=== PATIENT | female | born 1975 | race Caucasian/White ===

== ENCOUNTER 2022-06-14 12:39 | Inpatient (IN) | payer OTHER, MEDICAID ==
[~2022-06-14] VITALS: Ht 152.4 cm; Wt 58.3 kg
[2022-06-14 12:49] VITALS: BP 93/55; PULSE 97; TEMP 98.5
[2022-06-14 13:29] LABS: APPEARANCE,URINE SL CLOUDY (CLEAR); BILIRUBIN,URINE 1+ (NEGATIVE); BLOOD, URINE NEGATIVE (NEGATIVE); COLOR,URINE YELLOW (YELLOW); LEUKOCYTE ESTERASE ,URINE TRACE (NEGATIVE); NITRITE, URINE NEGATIVE (NEGATIVE); UGLUCOSE NEGATIVE (NEGATIVE)
[2022-06-14 13:30] LABS: BASOPHILS % (AUTO) 0.6 % (0.0-2.0); EOSINOPHILS % (AUTO) 0.2 % (0.0-4.0); HEMOGLOBIN 9.6 g/dL (12.0-16.0); LYMPHOCYTES # (AUTO) 1.2 K/uL (2.5-16.5); LYMPHOCYTES % (AUTO) 17.1 % (20.5-51.1); MEAN CORPUSCULAR HEMOGLOBIN 30 pg (27-31); MEAN CORPUSCULAR HGB CONC 33 g/dL (33-37); MEAN CORPUSCULAR VOLUME 88.7 fL (80-94); MONOCYTES # (AUTO) 0.5 K/uL (0.8-1.0); NEUTROPHILS % (AUTO) 75.1 % (42.2-75.2); PLATELET COUNT (AUTO) 268 K/uL (140-450); RED BLOOD CELL COUNT(AUTO) 3.27 MIL/uL (4.20-5.40); RED CELL DISTRIBUTION WIDTH 14.9 % (11.6-13.7); WHITE BLOOD COUNT (AUTO) 6.7 K/uL (4.8-10.8)
--- NOTE | 2022-06-14 13:48 | NUR ---
AMB. TO BED 6 W BOTHER, NO ACUTE DISTRESS
[2022-06-14 13:50] LABS: RBC,URINE 0-5 /HPF (0-5)
[2022-06-14 13:52] LABS: ALBUMIN 1.9 g/dL (3.4-5.0); ANION GAP 11.7 (8-16); CARBON DIOXIDE 24.2 mmol/L (21-32); CREATININE 1.3 mg/dL (0.6-1.3); TOTAL BILIRUBIN 0.2 mg/dL (0.0-1.0)
[2022-06-14 13:53] LABS: POTASSIUM 2.9 mmol/L (3.5-5.1)
[2022-06-14] MEDS ORDERED: POTASSIUM CHLORIDE 20% 40 MEQ/15 ML UDC PO ONE (13:55)
--- NOTE | 2022-06-14 15:25 | NUR ---
NURSING ASSESSMENT COMPLETED.
[2022-06-14] MEDS ORDERED: VANCOMYCIN 1,000 MG in DEXTROSE 5% 250 ML IV ONE (15:30)
[2022-06-14] MEDS ORDERED: PIPERACILLIN/TAZOBACTAM 3.375 GM in DEXTROSE 5% 50 ML IV ONE (15:30)
--- NOTE | 2022-06-14 15:31 | NUR ---
PT BIB BROTHER C/O ABD PAIN X 2WKS. UNRESOLVED PREVIOUSLY FROM DIFFERENT HOSPITAL. NAD.
[2022-06-14] MEDS ORDERED: PIPERACILLIN/TAZOBACTAM 3.375 GM VIAL IV ONE ×2 (15:35→23:13)
[2022-06-14] MEDS ORDERED: VANCOMYCIN 1,000 MG VIAL ONE (15:35)
--- NOTE | 2022-06-14 16:00 | NUR ---
LAURA DONE AND WALKED TO LAB.
[2022-06-14] MEDS ORDERED: LORazepam 1 MG TAB PO PRN (17:15)
[2022-06-14] MEDS ORDERED: MORPHINE SULFATE 4 MG/ML SYR IVP PRN (17:15)
[2022-06-14] MEDS ORDERED: NACL 0.9% 1,000 ML IV SCH (17:15)
[2022-06-14] MEDS ORDERED: ONDANSETRON 4 MG/2 ML VIAL IVP PRN (17:15)
[2022-06-14] MEDS: POTASSIUM CHL 40 MEQ/ D5-1/2NS 1,000 ML IV SCH (18:43)
--- NOTE | 2022-06-14 20:00 | NUR ---
PT IS ABLE TO ANSWERS QUETIONS. pOTTASIUM IS RUNNING. PT IS ALERT X2. BROTHER AND MOTHER AT THE BEDSIDE
[2022-06-14 20:20] VITALS: BP 110/64; PULSE 86; RESP 16; TEMP 98.2; O2SAT 100
--- NOTE | 2022-06-14 20:20 | NUR ---
RECEIVED PT A NEW ADMIT FROM ER. PT IS AWAKE, ALERT AND ORIENTED X2, RE-ORIENTATION DONE TO PLACE, DATE AND TIME. BROTHER AND MOTHER AT THE BEDSIDE. BROTHER ERIN ANSWERED ADMITTING QUESTIONS. PT DENIES PAIN. NO ACUTE RESPIRATORY DISTRESS. PT HAD A BOWEL MOVEMENT, CLEANED PT. MADE [id number] IN BED, CALL LIGHT PLACED WITHIN REACH, ENCOURAGED TO CALL IF ASSISTANCE IS NEEDED.
[2022-06-14 20:36] VITALS: PULSE 88
--- NOTE | 2022-06-14 21:01 | NUR ---
INFORMED DR. HOWARD OF 2 IVF ORDERED, PER MD D/C NORMAL SALINE. WILL CARRY OUT ORDERED.
--- NOTE | 2022-06-14 21:36 | NUR ---
Patient will be admitted to care of [facility]. Admited to TELE. Will go to room 121 . Belongings list completed. Report to FRANK Ballard
--- NOTE | 2022-06-14 22:13 | NUR ---
DR. OLSEN IS AT THE BEDSIDE SPOKE WITH PT AND MOTHER. INFORMED OF PLAN FOR THE PATIENT. PER DR. OLSEN PLAN TO DO ULTRA SOUND GUIDED DRAINAGE IN AM BY RADIOLOGY, PER MOTHER BROTHER ERIN WILL SIGN CONSENT IN AM.
--- NOTE | 2022-06-14 22:19 | NUR ---
SPOKE TO BROTHRUTH KHAN REGARDING PROCEDURE ORDERED BY , HE WILL BE HERE [place] AT 10 AM TO SIGN CONSENT. WILL ENDORSE ACCORDINGLY.
[2022-06-14] MEDS: PIPERACILLIN/TAZOBACTAM 3.375 GM in DEXTROSE 5% 50 ML IV SCH (23:15)
[2022-06-15] VITALS (7 sets, daily range): BP systolic 91–122; BP diastolic 59–69; PULSE 75–94; RESP 16–17; TEMP 97.3–98.2; O2SAT 98–100
--- NOTE | 2022-06-15 | NUR ---
VITAL SIGNS TAKEN AND DOCUMENTED. VS STABLE. DENIES PAIN. CALL LIGHT WITHIN REACH.
--- NOTE | 2022-06-15 03:47 | NUR ---
INCONTINENT OF URINE, PERINEAL CARE RENDERED. MADE COMFORTABLE IN BED. CALL LIGHT IN REACH.
[2022-06-15] MEDS ORDERED: PIPERACILLIN/TAZOBACTAM 3.375 GM VIAL IV ONE (05:01)
[2022-06-15] MEDS: PIPERACILLIN/TAZOBACTAM 3.375 GM in DEXTROSE 5% 50 ML IV SCH ×4 (05:03→23:11)
[2022-06-15] MEDS: POTASSIUM CHL 40 MEQ/ D5-1/2NS 1,000 ML IV SCH (05:52)
[2022-06-15 05:58] LABS: ALBUMIN 1.6 g/dL (3.4-5.0); ANION GAP 10.5 (8-16); CARBON DIOXIDE 23.7 mmol/L (21-32); MAGNESIUM 1.8 mg/dL (1.8-2.4); POTASSIUM 4.2 mmol/L (3.5-5.1); TOTAL BILIRUBIN 0.2 mg/dL (0.0-1.0)
--- NOTE | 2022-06-15 06:30 | NUR ---
PATIENT IS ASLEEP. ALL NEEDS ATTENDED TO. NO DISTRESS NOTED. SAFETY PRECAUTIONS MAINTAINED DURING THE SHIFT. CALL LIGHT REMAINS WITHIN REACH.
--- NOTE | 2022-06-15 07:20 | NUR ---
RECEIVED REPORT FROM PET FOOD DEBONER ANA FOR CONTINUITY OF CARE. INITIAL ASSESSMENT DONE. ALERT AND ORIENTED X2. RESP. EVEN AND UNLABORED. PT SCHEDULED FOR US GUIDED DRAINAGE OF ANTERIOR WALL ABSCESS. REMAINS NPO. MOTHER AT BEDSIDE. NO S/S OF DISTRESS NOTED. CALL LIGHT KEPT WITHIN REACH. WILL MONITOR CLOSELY.
--- NOTE | 2022-06-15 07:50 | NUR ---
RECEIVED CALLED FROM RADIOLOGY, WITH RECOMMENDATIONS: US ABDOMEN LIMITED, PT/INR, PTT AND PLATELET. DR. WALKER NOTIFIED, AGREED AND GIVE ORDER. NOTED AND CARRIED OUT.
--- NOTE | 2022-06-15 09:20 | NUR ---
SCHEDULED HEPARIN NOT GIVEN D/T PT SCHEDULED FOR US GUIDED DRAINAGE OF ANTERIOR WALL ABSCESS.
--- NOTE | 2022-06-15 10:31 | NUR ---
PATIENT HAS BEEN SCREENED AND CATEGORIZED LOW NUTRITION RISK. PATIENT WILL BE SEEN WITHIN 7 DAYS OF ADMISSION. 06/21/[address]
[2022-06-15 11:38] LABS: PROTHROMBIN TIME 8.8 secs (10.8-13.4)
--- NOTE | 2022-06-15 12:20 | NUR ---
IV ZOSYN WAS GIVEN BY NEENA SALEH. TOLERATED WELL.
--- NOTE | 2022-06-15 13:35 | NUR ---
RECEIVED CALLED FROM RADIOLOGY STATED PT WILL BED SCHEDULED TODAY FOR US GUIDED DRAINAGE OF ANTERIOR WALL ABSCESS AFTER 0. PT NINOSKA KHAN AT BEDSIDE MADE AWARE.
[2022-06-15] MEDS: DEXT 5% /NACL 0.9% 1,000 ML IV SCH (14:18)
--- NOTE | 2022-06-15 15:11 | NUR ---
DC PLANNIN YRS OLD FEMALE PATIENT WAS ADMITTED FROM HOME WITH A DX OF ABDOMINAL WALL ABSCESS, SEPSIS. PATIENT HAS A HX OF DOWN SYNDROME, HTN, AND HLD. CT ABD/PELVIS AND US ABD SHOWED CONCERNING FOR ANTERIOR WALL ABSCESS. ADMINISTERED IVF, IV ABX ZOSYN AND CONTINUED HOME MEDS. CONSULTED WITH ID AND SURGEON. DC PLAN TO GO HOME WHEN STABLE. CM TO FOLLOW Addendum: 06/18/22 at 1334 by MOUNIKA MANDUJANO CM DC PLANNING S/P LAPAROTOMY AND PARTIAL SIGMOID COLLECTOMY WITH I&D ABDOMINAL WALL ABSCESS 06/17.FROM OR PATIENT WAS INTUBATED AND WAS TRANSFERRED TO ICU BUT PATIENT SELF EXTUBATED AND NOW ON ROOM AIR.BLOOD CULTURE PRELIM RESULT SHOWS FEW GM( -)RODS AND FEW GM( +)RODS.ON ZOSYN.NEPRO AND I&D FOLLOWING.CM TO FOLLOW. Addendum: 06/24/22 at 1626 by MOUNIKA MANDUJANO CM DC PLANNING PATIENT IS AWAKE BUT NON VERBAL, HAS DOWN SYNDROME.MOTHER AT BEDSIDE BUT SPEAKS SETSWANA ONLY.PATIENT ON RA ,NOT IN DISTRESS.HGB 6.2 1 UNIT PRBC IN PROGRESS.ABDOMINAL ABSCESS (+) FOR ESBL.ID FOLLOWING.PATIENT HAS POOR PO INTAKE.MIGHT HAVE POSSIBLE PEG PLACEMENT VS TPN PER . CM TO FOLLOW. Addendum: 06/25/22 at 1141 by MOUNIKA MANDUJANO CM DC PLANNING ST PHYLLISAL DONE YESTERDAY AND PUREE DIET WAS RECOMMENDED.BROTHER SAID HE WILL TRY TO FEED HER FOOD FROM HOME. SPOKE WITH BRADY AT [facility] AND UPDATED OF DC PLAN.PROGRESS REPORTS FROM 06/23/22 -06/25/22 FAXED REQUESTED.CM TO FOLLOW. Addendum: 06/26/22 at 1201 by MOUNIKA MANDUJANO CM DC PLANNING SPOKE WITH AND US ABDOMEN TO BE REVIEWED.IF ABSCESS IS NOT DRAINABLE WILL DC PATIENT .TALKED TO KENNEDY AT [facility] FOR HOME HEALTH PT AND WOUND CARE.FAX # Addendum: 06/26/22 at 0919 by MOUNIKA MANDUJANO CM DC PLANNING- [facility] ACCEPTED PATIENT AUTH #[id number].FAX # .[facility] TO CONTACT PATIENT FOR PT AND WOUND CARE. Addendum: 06/30/22 at 1430 by MOUNIKA MANDUJANO CM DC PLANNING PATIENT IS CALM NOT IN PAIN.VS STABLE. IR DRAINAGE FOR FLUID COLLECTION IN THE ABDOMEN DONE 06/29/22.FOR DC 5/23/23 PENDING CULTURES OF FLUID ABSCESS IN THE ABDOMEN PER .CLINICALS FROM 06/27-06/30 FAXED TO [facility].BERNARD AT [facility] UPDATED OF PATIENT'S CONDITION AND PLAN.CM TO FOLLOW. Addendum: 07/01/22 at 1631 by MOUNIKA MANDUJANO CM DC PLANNING. PATIENT IS FOR DISCHARGE TODAY.[facility] TO DO HOME PT AND WOUND CARE Addendum: 07/02/22 at 7616 by MOUNIKA MANDUJANO CM DC PLANNING CORRECTION FOR PHONE NUMBER OF [facility] - .CALLED [facility] LEFT A MESSAGE TO [employer].
--- NOTE | 2022-06-15 16:50 | NUR ---
MADE FOLLOW UP CALLED TO RADIOLOGY. NO ANSWER.
--- NOTE | 2022-06-15 17:09 | NUR ---
MADE FOLLOW UP CALLED TO RADIOLOGY, SPOKE TO FEMALE STAFF AND STATED SOMEBODY WILL CALLED BACK.
--- NOTE | 2022-06-15 19:02 | NUR ---
BEDSIDE REPORT GIVEN TO PALS NURSE FOR CONTINUITY OF CARE. REMAINS STABLE.
--- NOTE | 2022-06-15 19:05 | NUR ---
RECEIVED PT IN BED AWAKE. FAMILY MEMBERS AT THE BEDSIDE. DENIES PAIN. NO ACUTE RESPIRATORY DISTRESS NOTED. IVF INFUSING WELL ORDERED. SKIN WARM AND DRY TO TOUCH. BED IN THE LOWEST AND LOCKED POSITION FOR SAFETY, CALL LIGHT IN REACH, ENCOURAGED TO CALL IF ASSISTANCE IS NEEDED, PT AND FAMILY MEMBERS VERBALLY ACKNOWLEDGED.
--- NOTE | 2022-06-15 19:48 | NUR ---
ASSISTED PT TO THE BATHROOM AND BACK TO BED WITH STEADY GAIT, VOIDED WITHOUT DIFFICULTY AND HAD A BOWEL MOVEMENT, CLEANED PT, CHANGED GOWN. MADE COMFORTABLE IN BED.
[2022-06-15] MEDS: HYDROcodone/APAP 5/325 MG 1 TAB TAB PO PRN (23:20)
--- NOTE | 2022-06-15 23:20 | NUR ---
PATIENT COMPLAINING OF PAIN, MEDICATED ORDERED.
[2022-06-16] VITALS: BP 95/50; PULSE 83; RESP 16; TEMP 98.5; O2SAT 100
[2022-06-16] MEDS ORDERED: PIPERACILLIN/TAZOBACTAM 3.375 GM in DEXTROSE 5% 50 ML IV SCH ×2
[2022-06-16 00:01] VITALS: PULSE 78
--- NOTE | 2022-06-16 00:20 | NUR ---
RE-ASSESSED FOR PAIN, PT ASLEEP. NO S/SX OF PAIN NOR DISCOMFORT. MOTHER AT THE BEDSIDE.
[2022-06-16] MEDS: DEXT 5% /NACL 0.9% 1,000 ML IV SCH ×2 (00:34→12:26)
--- NOTE | 2022-06-16 02:11 | NUR ---
ROUNDING DONE. PATIENT IS ASLEEP. BREATHING EVEN AND UNLABORED. CALL LIGHT WITHIN REACH.
[2022-06-16 04:00] VITALS: BP 107/67; PULSE 75; PULSE 79; RESP 16; TEMP 97.6; O2SAT 99
[2022-06-16] MEDS: PIPERACILLIN/TAZOBACTAM 3.375 GM in DEXTROSE 5% 50 ML IV SCH ×3 (05:07→17:34)
[2022-06-16 05:43] LABS: ALBUMIN 1.5 g/dL (3.4-5.0); ANION GAP 9.1 (8-16); CARBON DIOXIDE 24.6 mmol/L (21-32); CREATININE 1.2 mg/dL (0.6-1.3); MAGNESIUM 1.8 mg/dL (1.8-2.4); POTASSIUM 3.7 mmol/L (3.5-5.1); TOTAL BILIRUBIN 0.2 mg/dL (0.0-1.0)
--- NOTE | 2022-06-16 06:34 | NUR ---
PATIENT IS ASLEEP. ALL NEEDS ATTENDED TO. NO DISTRESS NOTED. SAFETY PRECAUTIONS MAINTAINED DURING THE SHIFT. CALL LIGHT REMAINS WITHIN REACH.
--- NOTE | 2022-06-16 07:05 | NUR ---
RECEIVED REPORT FROM MINGLER OPERATOR ANA FOR CONTINUITY OF CARE. INITIAL ASSESSMENT DONE. ALERT AND ORIENTED X2. SKIN DRY AND WARM TO TOUCH. PT SCHEDULED FOR US GUIDED DRAINAGE OF ANTERIOR WALL ABSCESS. REMAINS NPO. MOTHER AT BEDSIDE. NO S/S OF PAIN OR DISCOMFORT. CALL LIGHT KEPT WITHIN REACH. WILL MONITOR CLOSELY.
[2022-06-16 08:00] VITALS: BP 109/66; PULSE 75; PULSE 80; RESP 16; TEMP 97.2; O2SAT 97
--- NOTE | 2022-06-16 08:42 | NUR ---
HEPARIN HOLD D/T PT SCHEDULED FOR US GUIDED DRAINAGE OF ANTERIOR WALL ABSCESS.
--- NOTE | 2022-06-16 09:45 | NUR ---
SEEN BY DR. CAMACHO.
--- NOTE | 2022-06-16 11:14 | NUR ---
RECEIVED CALLED FROM RADIOLOGY SPOKE TO ZORAIDA STATED PT IS SCHEDULED FOR PROCEDURE AT 1300, THEY WILL NEWS CLERK T 12:30
--- NOTE | 2022-06-16 12:29 | NUR ---
DC PLANNING ASSESSMENT COMPLETE PLEASE REFER TO ASSESSMENT FOR ADDITIONAL DETAILS ERIN INQUIRING ON HOME HEALTH SERVICES IN ORDER TO CARE FOR THE SURGERY WOUND. THOROUGHLY EXPLAINED TO ERIN HOW HH IS ARRANGED AND ENCOURAGED PT TO SPEAK WITH ATTENDING TO INQUIRE IF HH IS NECESSARY. ERIN VERBALIZED UNDERSTANDING. TENTATIVE DC PLAN IS FOR PT TO RETURN HOME WITH HH IF NECESSARY. Addendum: 06/16/22 at 1230 by Max MALAGON Amended: Links added.
[2022-06-16] MEDS ORDERED: fentaNYL citrate 0.05 MG/ML VIAL ONE (12:40)
[2022-06-16] MEDS ORDERED: MIDAZOLAM 2 MG/2 ML VIAL ONE (12:40)
--- NOTE | 2022-06-16 12:45 | NUR ---
CORNELIA FROM RADIOLOGY CAME, JOINTER MACHINE PT FOR CT IR DRAINAGE. REMAINS STABLE.
[2022-06-16] MEDS ORDERED: LIDOCAINE 1% 500 MG/50 ML VIAL ONE (13:06)
--- NOTE | 2022-06-16 14:20 | NUR ---
PT RETURN FROM RADIOLOGY. ALERT AND ORIENTED X 2. S/P IR DRAINAGE. WITH ACCORDION DRAIN TO MID ABDOMEN. WITH 100 CC OUTPUT. NO S/S PAIN OR DISCOMFORT. CALL LIGHT KEPT WITHIN REACH. VS STABLE.
--- NOTE | 2022-06-16 15:05 | NUR ---
RECEIVED CALLED FROM DR. CAMACHO. N/O STAT ECHOCARDIOGRAM. ORDER NOTED AND CARRIED OUT.
[2022-06-16 15:39] LABS: APPEARANCE,UNSPUN,BODY FLUID CLOUDY (CLEAR); SPECIMENTYPE,BODY FLUID ABCESS
[2022-06-16 15:40] LABS: APPEARANCE,SPUN,BODY FLUID CLOUDY (CLEAR); COLOR,BODY FLUID BROWN (LT YELLOW); RBC, BODY FLUID > 100 /cu. mm.; TOTAL VOLUME,BODY FLUID 0.5 mL; WBC, BODY FLUID TNTC /cu. mm.
--- NOTE | 2022-06-16 17:25 | NUR ---
MARINE SANCHEZ FOLLOWED UP STAT ECHOCARDIOGRAM. AWAITING FOR CALLED BACK.
--- NOTE | 2022-06-16 17:34 | NUR ---
RECEIVED CALLED FROM ScaleIO ASSHA, STATED HE WILL CALL DR. CAMACHO.
--- NOTE | 2022-06-16 19:00 | NUR ---
ECHOCARDIOGRAM STARTED AT BEDSIDE.
--- NOTE | 2022-06-16 19:20 | NUR ---
REPORT GIVEN TO NIGHT NURSE SHERRIE FOR CONTINUITY OF CARE. REMAINS STABLE.
[2022-06-16 20:00] VITALS: BP 108/64; PULSE 80; RESP 18; TEMP 98.2; O2SAT 98
--- NOTE | 2022-06-16 21:00 | NUR ---
HELD HEPARIN INJECTION DUE TO PT WILL HAVE SURGERY PROCEDURE IN THE MORNING.
--- NOTE | 2022-06-16 21:45 | NUR ---
DR. LACY CALLED TO UPDATE PT LAB RESULTS. DR. LACY ORDER CBC STAT. LAB WITHDRAWN BLOOD FOR CBC TEST.
[2022-06-16 22:09] LABS: EOSINOPHILS % (AUTO) 0.9 % (0.0-4.0); HEMATOCRIT 24.3 % (36-48); HEMOGLOBIN 8.2 g/dL (12.0-16.0); LYMPHOCYTES % (AUTO) 19.9 % (20.5-51.1); MEAN CORPUSCULAR HEMOGLOBIN 30 pg (27-31); MEAN CORPUSCULAR HGB CONC 34 g/dL (33-37); MEAN CORPUSCULAR VOLUME 89.4 fL (80-94); MONOCYTES # (AUTO) 0.3 K/uL (0.8-1.0); MONOCYTES % (AUTO) 6.6 % (1.7-9.3); NEUTROPHILS # (AUTO) 3.6 K/uL (1.8-7.7); NEUTROPHILS % (AUTO) 71.6 % (42.2-75.2); PLATELET COUNT (AUTO) 233 K/uL (140-450); RED BLOOD CELL COUNT(AUTO) 2.72 MIL/uL (4.20-5.40); RED CELL DISTRIBUTION WIDTH 15.3 % (11.6-13.7)
[2022-06-16] MEDS: MAGNESIUM HYDROXIDE 2400 MG/30 ML UDC PO SCH (22:15)
--- NOTE | 2022-06-16 22:55 | NUR ---
DR. LACY CALLED FOR CBC RESULT. PT'S HEMOGLOBIN 8.2. DR. LACY REQUEST BLOOD TRANSFUSION OF 1 UNIT RBC RELATED TO SURGERY PROCEDURE TOMORROW. CONTACT THE HORTICULTURAL TECHNICAL OFFICER PRIMARY PER DR. LACY'S ORDER. WAITING FOR THE CALL.
--- NOTE | 2022-06-16 23:30 | NUR ---
DR. PANDA ORDER 1 PACK RBC TO BE TRANSFUSED TO PT.
[2022-06-17] VITALS (15 sets, daily range): BP systolic 75–143; BP diastolic 44–89; PULSE 71–135; RESP 18–30; TEMP 96.8–97.5; O2SAT 97–100
[2022-06-17] MEDS: MAGNESIUM HYDROXIDE 2400 MG/30 ML UDC PO SCH
[2022-06-17] MEDS: DEXT 5% /NACL 0.9% 1,000 ML IV SCH ×2 (00:04→12:09)
--- NOTE | 2022-06-17 00:10 | NUR ---
PT'S MOTHER DID SIGNED CONSENTS FOR BLOOD TRANSFUSION AND SURGERY.
[2022-06-17] MEDS: PIPERACILLIN/TAZOBACTAM 3.375 GM in DEXTROSE 5% 50 ML IV SCH ×4 (00:18→17:53)
--- NOTE | 2022-06-17 00:20 | NUR ---
MILK OF MAGNESIA IS HELD DUE TO PT IS NPO, PT WILL HAVE SURGERY PROCEDURE IN THE MORNING.
[2022-06-17 05:37] LABS: BASOPHILS # (AUTO) 0.1 K/uL (0.00-0.22); BASOPHILS % (AUTO) 0.8 % (0.0-2.0); EOSINOPHILS # (AUTO) 0.1 K/uL (0-0.4); HEMATOCRIT 31.3 % (36-48); HEMOGLOBIN 10.5 g/dL (12.0-16.0); LYMPHOCYTES # (AUTO) 0.7 K/uL (2.5-16.5); LYMPHOCYTES % (AUTO) 10.2 % (20.5-51.1); MEAN CORPUSCULAR HEMOGLOBIN 30 pg (27-31); MEAN CORPUSCULAR HGB CONC 33 g/dL (33-37); MEAN CORPUSCULAR VOLUME 88.6 fL (80-94); MONOCYTES # (AUTO) 0.4 K/uL (0.8-1.0); NEUTROPHILS # (AUTO) 5.9 K/uL (1.8-7.7); PLATELET COUNT (AUTO) 223 K/uL (140-450); RED BLOOD CELL COUNT(AUTO) 3.54 MIL/uL (4.20-5.40); RED CELL DISTRIBUTION WIDTH 15.1 % (11.6-13.7); WHITE BLOOD COUNT (AUTO) 7.1 K/uL (4.8-10.8)
[2022-06-17 06:39] LABS: ALBUMIN 1.5 g/dL (3.4-5.0); ANION GAP 11.7 (8-16); CARBON DIOXIDE 23.1 mmol/L (21-32); CREATININE 1.1 mg/dL (0.6-1.3); MAGNESIUM 1.9 mg/dL (1.8-2.4); POTASSIUM 3.8 mmol/L (3.5-5.1); TOTAL BILIRUBIN 0.3 mg/dL (0.0-1.0)
[2022-06-17] MEDS ORDERED: fentaNYL citrate 0.05 MG/ML - 50mL vial IV ONE (07:00)
[2022-06-17] MEDS ORDERED: PROPOFOL 200 MG/20 ML VIAL IV ONE ×2 (07:00→08:49)
[2022-06-17] MEDS ORDERED: MIDAZOLAM 5 MG/5 ML VIAL ONE (07:00)
[2022-06-17] MEDS ORDERED: SEVOFLURANE 250 ML BTL INH ONE (07:00)
[2022-06-17] MEDS ORDERED: ROCURONIUM 50 MG/5 ML VIAL IV ONE ×3 (07:00→08:49)
--- NOTE | 2022-06-17 07:20 | NUR ---
RECEIVED REPORT FROM CARE DIRECTOR NURSE FOR CONTINUITY OF CARE. PT IS CURRENTLY OFF UNIT. PICKED UP BY OR TEAM FOR SCHEDULED PROCEDURE.
[2022-06-17] MEDS ORDERED: BUPIVACAINE-MPF 0.25% 30 ML VIAL INJ ONE (07:26)
[2022-06-17] MEDS ORDERED: LIDOCAINE/EPI MPF 1%1:200000 30 ML VIAL INJ ONE (07:43)
[2022-06-17] MEDS ORDERED: fentaNYL citrate 0.05 MG/ML VIAL ONE (08:02)
--- NOTE | 2022-06-17 10:52 | NUR ---
TRANSFERRED PATIENT FROM OR TO ICU-5; RECEIVED ON AN AMBU BAG AT 15 LPM VIA E-TANK AT 15 LPM TO AN ENDOTRACHEAL TUBE #6.5 SEMI SECURED WITH OR ORANGE TAPE AT RIGHT SIDE; ORAL AIRWAY IN PLACE; BAG DEPRESSION EVERY 6 TO 8 SECONDS; SATURATION 100%
--- NOTE | 2022-06-17 11:00 | NUR ---
PLACED ON A ShowcaseSCAPE R860 VENTILATOR PLUGGED INTO RED OUTLET TOLERATING WELL WITHOUT ADVERSE REACTIONS NOTED TO AN ENDOTRACHEAL TUBE #6.5; REMOVED OR ORANGE TAPE REPLACED WITH AN ANCHOR FAST; ENDOTRACHEAL TUBE SECURED AT 21cm TEETH/GUM LINE CUFF PRESSURED CHECKED NOTED AMBU BAG AT BEDSIDE EQUAL CHEST RISE WITH GOOD AERATION THROUGHOUT BILATERAL LUNG MORALES AIRWAY PATENT SCREEN TACKER TO REQUEST CXR TO CONFORM ENDOTRACHEAL TUBE PLACEMENT
--- NOTE | 2022-06-17 11:00 | NUR ---
RECEIVED PT FROM OR. ETT TO VENT ACVC FIO2 35% TV 400, RATE 20 PEEP 5. PT OBTUNDED, NOT ON ANY SEDATION. WITH PERIPHERAL IV LAC 18G RUNNING IVF ORDERED. GUILLERMO CATHETER INTACT AND PATENT, DRAINING CLEAR YELLOW URINE. S/P EX LAP, COLECTOMY AND I&D OF ABD WALL ABSCESS. INCISION DRESSING DRY, INTACT. ABD BINDER IN PLACE
[2022-06-17] MEDS ORDERED: hydrALAZINE 20 MG/ML VIAL IVP PRN (11:05)
[2022-06-17] MEDS ORDERED: LABETALOL 20 MG/4 ML VIAL IVP PRN (11:05)
[2022-06-17] MEDS ORDERED: HYDROmorphone 1 MG/ML AMP IVP PRN (11:10)
[2022-06-17] MEDS ORDERED: LACTATED RINGERS 1,000 ML IV SCH (11:10)
[2022-06-17] MEDS ORDERED: ONDANSETRON 4 MG/2 ML VIAL IVP PRN (11:10)
--- NOTE | 2022-06-17 11:18 | NUR ---
CXR COMPLETED; ENDOTRACHEAL TUBE 2.1cm ABOVE KRIS; GOOD CHEST RISE AND AERATION THROUGHOUT BILATERAL LUNG MORALES AIRWAY PATENT
--- NOTE | 2022-06-17 12:00 | NUR ---
SBP 60-70, DR RONDON NOTIFIED. ORDERS RECEIVED
--- NOTE | 2022-06-17 12:00 | NUR ---
PT TRANSFERRED TO ICU BED 5, FROM SURGERY.
[2022-06-17] MEDS: ACETAMINOPHEN EXTRA STRENGTH 500 MG TAB PO SCH ×3 (12:17→21:22)
[2022-06-17] MEDS ORDERED: NACL 0.9% 1,000 ML IV SCH (12:30)
--- NOTE | 2022-06-17 13:00 | NUR ---
SEEN AND EXAMINE BY DR RONDON. UPDATED FAMILY AT BEDSIDE
--- NOTE | 2022-06-17 13:29 | NUR ---
POST OR RECOVERY; STABLE NO EVIDENCE FOR PULMONARY DISTRESS NOTED GOOD CHEST RISE AIRWAY PATENT Addendum: 06/17/22 at 1517 by Sukumar Apodaca RT SATURATION 100% ON FIO2 OF 35% PEEP 5cmH2O TITRATED FIO2 TO 30% ALICIA/MOLDER FLOOR NOTIFIED
[2022-06-17 13:37] LABS: EOSINOPHILS % (AUTO) 0.1 % (0.0-4.0); MEAN CORPUSCULAR HEMOGLOBIN 30 pg (27-31); MONOCYTES # (AUTO) 0.4 K/uL (0.8-1.0)
[2022-06-17 13:42] LABS: BASOPHILS % (AUTO) 0.4 % (0.0-2.0); HEMATOCRIT 31.5 % (36-48); HEMOGLOBIN 10.4 g/dL (12.0-16.0); LYMPHOCYTES # (AUTO) 0.9 K/uL (2.5-16.5); LYMPHOCYTES % (AUTO) 8.9 % (20.5-51.1); MEAN CORPUSCULAR HGB CONC 33 g/dL (33-37); MONOCYTES % (AUTO) 4.4 % (1.7-9.3); NEUTROPHILS # (AUTO) 8.4 K/uL (1.8-7.7); NEUTROPHILS % (AUTO) 86.2 % (42.2-75.2); PLATELET COUNT (AUTO) 329 K/uL (140-450); RED BLOOD CELL COUNT(AUTO) 3.54 MIL/uL (4.20-5.40); RED CELL DISTRIBUTION WIDTH 15.6 % (11.6-13.7); WHITE BLOOD COUNT (AUTO) 9.7 K/uL (4.8-10.8)
--- NOTE | 2022-06-17 14:30 | NUR ---
PER ALICIA/DIABETES TRAINER; V.O DR. FAIZA RONDON: CPAP TRIAL; ABG AFTER 1 HOUR
--- NOTE | 2022-06-17 14:52 | NUR ---
PLACED ON CPAP TRIAL NOTED NO DISTRESS NOTED EQUAL CHEST RISE AIRWAY PATENT FAMILY REMAINS AT BEDSIDE Addendum: 06/17/22 at 1524 by Sukumar Apodaca RT ALICIA/ASSOCIATE JAVA DEVELOPER NOTIFIED OF CPAP TRIAL AND FIO2 TITRATION
[2022-06-17 15:22] LABS: ALBUMIN 1.4 g/dL (3.4-5.0); ANION GAP 14.7 (8-16); CARBON DIOXIDE 20.2 mmol/L (21-32); CREATININE 1.3 mg/dL (0.6-1.3); POTASSIUM 3.9 mmol/L (3.5-5.1); TOTAL BILIRUBIN 0.5 mg/dL (0.0-1.0)
--- NOTE | 2022-06-17 16:30 | NUR ---
PT RESTLESS AND GRIMACING. PRN NORCO AND ATIVAN GIVEN ORDERED
[2022-06-17] MEDS: HYDROcodone/APAP 5/325 MG 1 TAB TAB PO PRN (16:35)
--- NOTE | 2022-06-17 16:45 | NUR ---
PATIENT PRESENTING WITH INCREASED WOB AT +50 BPM; PEAK PRESSURE AT +[id number]; UNABLE TO TOLERATED PC MODE CHANGED TO PRVC MODE AT THIS TIME; LAB AT BEDSIDE; ALICIA/ICO RN TO CONTACT DR. FAIZA RONDON FOR SEDATION ORDER
--- NOTE | 2022-06-17 17:03 | NUR ---
PATIENT AGITATED WITH SELF EXTUBATION OF PUSHING OUT ENDOTRACHEAL TUBE (ETT) WITH TONGUE; REMOVED ETT AND ANCHOR FAST PLACED ON SUPPLEMENTAL OXYGEN 15 LPM VIA NON REBREATHER; SATURATION 100% HR 130 RR 24 BPM; BRIM STRETCHER TO MONITOR; ALICIA/PULMONARY SPECIALIST AT BEDSIDE AND AWARE; RN TO NOTIFY DIRECTOR LIFE SCIENCES ESTHETICIAN FACIALIST; PREVIOUS ATTENDING DIRECTOR LIFE SCIENCES DR. FAIZA RONDON
--- NOTE | 2022-06-17 17:15 | NUR ---
PT SELF EXTUBATED, PUSHED OUT ETT WITH HER TONGUE. RT AT BEDSIDE, PLACED ON NRM 15L. O2SAT 100%. DR RONDON MADE AWARE, CONTINUE TO OBSERVE
--- NOTE | 2022-06-17 19:25 | NUR ---
REMOVED NON-REBREATHER MASK. PT ON ROOM AIR SATURATION 99% RN AT BEDSIDE. PT IN NO RESPIRATORY DISTRESS. WILL CONTINUE TO MONITOR
[2022-06-17] MEDS: HYDROmorphone 1 MG/ML AMP IVP PRN (19:41)
[2022-06-18] VITALS (11 sets, daily range): BP systolic 94–130; BP diastolic 55–73; PULSE 90–110; RESP 18–32; TEMP 97.4–98.3; O2SAT 94–100
[2022-06-18] MEDS: PIPERACILLIN/TAZOBACTAM 3.375 GM in DEXTROSE 5% 50 ML IV SCH ×4 (00:02→17:10)
[2022-06-18] MEDS: DEXT 5% /NACL 0.9% 1,000 ML IV SCH (02:25)
[2022-06-18 05:04] LABS: BASOPHILS % (AUTO) 0.2 % (0.0-2.0); HEMATOCRIT 27.2 % (36-48); HEMOGLOBIN 9.2 g/dL (12.0-16.0); LYMPHOCYTES # (AUTO) 0.7 K/uL (2.5-16.5); LYMPHOCYTES % (AUTO) 8.2 % (20.5-51.1); MEAN CORPUSCULAR HEMOGLOBIN 31 pg (27-31); MEAN CORPUSCULAR HGB CONC 34 g/dL (33-37); MEAN CORPUSCULAR VOLUME 90.6 fL (80-94); MONOCYTES # (AUTO) 0.5 K/uL (0.8-1.0); MONOCYTES % (AUTO) 6.3 % (1.7-9.3); NEUTROPHILS # (AUTO) 7.1 K/uL (1.8-7.7); NEUTROPHILS % (AUTO) 85.3 % (42.2-75.2); PLATELET COUNT (AUTO) 224 K/uL (140-450); RED BLOOD CELL COUNT(AUTO) 3.01 MIL/uL (4.20-5.40); RED CELL DISTRIBUTION WIDTH 15.4 % (11.6-13.7); WHITE BLOOD COUNT (AUTO) 8.3 K/uL (4.8-10.8)
[2022-06-18 05:25] LABS: ALBUMIN 1.2 g/dL (3.4-5.0); ANION GAP 10.6 (8-16); CARBON DIOXIDE 22.8 mmol/L (21-32); CREATININE 1.6 mg/dL (0.6-1.3); MAGNESIUM 1.7 mg/dL (1.8-2.4); POTASSIUM 4.4 mmol/L (3.5-5.1); TOTAL BILIRUBIN 0.2 mg/dL (0.0-1.0)
[2022-06-18] MEDS: ACETAMINOPHEN EXTRA STRENGTH 500 MG TAB PO SCH ×4 (07:37→21:49)
[2022-06-18] MEDS: LACTATED RINGERS 500 ML IV SCH ×2 (08:41→08:45)
[2022-06-18] MEDS: NACL 0.9% 1,000 ML IV SCH (15:00)
[2022-06-18 16:05] LABS: APPEARANCE,URINE CLEAR (CLEAR); BILIRUBIN,URINE NEGATIVE (NEGATIVE); BLOOD, URINE 3+ (NEGATIVE); COLOR,URINE YELLOW (YELLOW); LEUKOCYTE ESTERASE ,URINE NEGATIVE (NEGATIVE); NITRITE, URINE NEGATIVE (NEGATIVE); UGLUCOSE NEGATIVE (NEGATIVE)
--- NOTE | 2022-06-18 17:00 | NUR ---
REPORT TO THERESE SAUCEDA. ALL QUESTIONS ANSWERED. PT VSS. NAD NOTED. UNEVENTFUL SHIFT TODAY, PT STABLE FOR DOWNGRADE TRANSFER TO TELEMETRY. WILL ACCOMPANY PATIENT ON TELE MONITOR TO ROOM 121A.
--- NOTE | 2022-06-18 18:04 | NUR ---
got report from the icu nurse , pt stable , on tele monitor, iv maintained as ordered dressing is done on the abdomen in three places , Alec prat tube empty, icu reported 10cc output, the grandmother at bedside, pt follow command. [email or web address]
--- NOTE | 2022-06-18 18:48 | NUR ---
two family members at bed side, pt got dinner try, pt watching tv.[email or web address]
--- NOTE | 2022-06-18 19:25 | NUR ---
ENDORSED PT TO DROP MAN NURSE FOR CONTINUITY OF CARE.
--- NOTE | 2022-06-18 19:30 | NUR ---
RECEIVED REPORT FROM DAY SHIFT NURSE JODI FOR CONTINUITY OF CARE. PATIENT IS A&O X1., HISTORY OF DOWN SYNDROME. PATIENT IS ON ROOM AIR, BREATHING IS NORMAL WITH SYMMETRICAL RISE AND FALL OF CHEST. IV IS AN 18G LAC, RUNNING NS AT 100. PATIENT IS AWAKE, LYING SEMI-FOWLERS IN BED. MOTHER IS AT PATIENT'S BEDSIDE. BED IS IN LOWEST POSITION, WHEELS LOCKED, CALL LIGHT IN PLACE. WILL CONTINUE TO OBSERVE PATIENT.
[2022-06-19] VITALS: BP 134/68; PULSE 103; PULSE 98; RESP 22; TEMP 98; O2SAT 94
[2022-06-19] MEDS: NACL 0.9% 1,000 ML IV SCH ×2 (00:20→09:41)
[2022-06-19] MEDS: PIPERACILLIN/TAZOBACTAM 3.375 GM in DEXTROSE 5% 50 ML IV SCH ×2 (00:24→06:26)
--- NOTE | 2022-06-19 00:45 | NUR ---
IV WAS LEAKING; TRIED REINFORCING IV, BUT IV CONTINUES TO LEAK. THERESE PEREZ ATTEMPTED TO SAVE IV, BUT WAS UNABLE TO DO SO. NEW IV WAS NEEDED. IV WAS DIFFICULT TO PUT IN DUE TO PATIENT'S VEINS, BUT A NEW IV WAS ABLE TO BE PLACED BY THERESE PEREZ. NEW IV IS A 20G R HAND. ADMINISTERED PATIENT'S 0000 IVPB; MEDICATION RUNNING SUCCESSFULLY. PATIENT'S MOTHER IS STILL AT BEDSIDE. WILL CONTINUE TO OBSERVE PATIENT.
[2022-06-19 04:00] VITALS: BP 133/74; PULSE 86; PULSE 98; RESP 20; TEMP 97.7; O2SAT 96
--- NOTE | 2022-06-19 05:14 | NUR ---
PATIENT HAD 20ML OF BLOOD OUT FROM DANIEL ROJAS DRAIN; 350ML OF URINE FROM GUILLERMO CATHETER, AND 3 BOWEL MOVEMENTS. ABDOMINAL BANDAGES WERE ASSESSED DURING THE NIGHT AND ARE INTACT. DRESSING NEAR UMBILICUS LOOKS TO BE A SURGICAL DRESSING FROM SURGERY ON 06/17. WAS NOT INFORMED THAT SURGEON DR. CAMACHO SAW PATIENT FOR FIRST DRESSING CHANGE, AND COULD NOT FIND NOTATIONS ON THIS. WILL ENDORSE TO DAY SHIFT TO NOTIFY MD ABOUT ABDOMINAL DRESSING.
[2022-06-19 05:18] LABS: BASOPHILS % (AUTO) 0.3 % (0.0-2.0); EOSINOPHILS % (AUTO) 0.3 % (0.0-4.0); HEMATOCRIT 23.6 % (36-48); HEMOGLOBIN 7.8 g/dL (12.0-16.0); LYMPHOCYTES % (AUTO) 10.9 % (20.5-51.1); MEAN CORPUSCULAR HEMOGLOBIN 30 pg (27-31); MEAN CORPUSCULAR HGB CONC 33 g/dL (33-37); MEAN CORPUSCULAR VOLUME 89.7 fL (80-94); MONOCYTES # (AUTO) 0.6 K/uL (0.8-1.0); MONOCYTES % (AUTO) 6.8 % (1.7-9.3); NEUTROPHILS # (AUTO) 7.3 K/uL (1.8-7.7); NEUTROPHILS % (AUTO) 81.7 % (42.2-75.2); PLATELET COUNT (AUTO) 248 K/uL (140-450); RED BLOOD CELL COUNT(AUTO) 2.64 MIL/uL (4.20-5.40); RED CELL DISTRIBUTION WIDTH 15.2 % (11.6-13.7)
[2022-06-19 05:48] LABS: ALBUMIN 1.1 g/dL (3.4-5.0); ANION GAP 11.4 (8-16); CARBON DIOXIDE 22.4 mmol/L (21-32); CREATININE 1.3 mg/dL (0.6-1.3); MAGNESIUM 1.9 mg/dL (1.8-2.4); POTASSIUM 3.8 mmol/L (3.5-5.1); TOTAL BILIRUBIN 0.2 mg/dL (0.0-1.0)
[2022-06-19] MEDS: ACETAMINOPHEN EXTRA STRENGTH 500 MG TAB PO SCH ×4 (06:50→20:19)
--- NOTE | 2022-06-19 07:20 | NUR ---
ENDORSED TO DAY SHIFT NURSE RICHARD FOR CONTINUITY OF CARE. PATIENT IS STABLE.
[2022-06-19 08:00] VITALS: BP 106/66; PULSE 100; PULSE 86; RESP 18; TEMP 97.7; O2SAT 99
--- NOTE | 2022-06-19 09:34 | NUR ---
Held medication heparin due to low hemoglobin and hematocrit post surgical patient.
--- NOTE | 2022-06-19 10:34 | NUR ---
WOUND CARE NOTE: PT. WITH STATUS POST SIGMOID COLECTOMY,MID ABDOMINAL MULTIPLE PIPPA IN PLACE AND SECURED NO S/S OF WOUND DEHISCENCE.AREA DRY AND CLEAN. RLQ HELEN DRAIN SECURED WITH SUTURES AND FUNCTIONING.LLQ ABD SURGICAL WOUND A SLIT CUT 0.5X1CM MOIST WITH SMALL AMOUNT SANGUINOUS DRAINAGE, NO ODOR. POC DISCUSSED WITH PRIMARY RN RICHARD. RECOMMENDATIONS: -MID ABDOMINAL WOUND CLEANSE WITH NS. PAT DRY AND APPLY ABDOMINAL PAD AND SECURE WITH TAPE QD AND PRN IF SOILING. -LLQ ABDOMINAL WOUND CLEANSE WITH NS. PAT DRY AND PACK WOUND WITH DRY 2X2 GAUZES,APPLY DRY DRESSING AND SECURE WITH TAPE QD AND PRN IF SOILING.
[2022-06-19] MEDS ORDERED: GAUZE TP PRN (10:45)
[2022-06-19] MEDS: MEROPENEM 1,000 MG in NACL 0.9% 50 ML IV SCH ×2 (11:25→20:18)
[2022-06-19 12:00] VITALS: BP 99/61; PULSE 83; RESP 16; TEMP 97.5; O2SAT 95
[2022-06-19] MEDS: POTASSIUM CHL 20 MEQ/D5-1/2NS 1,000 ML IV SCH (13:23)
[2022-06-19] MEDS: GAUZE TP SCH (13:25)
--- NOTE | 2022-06-19 15:19 | NUR ---
06/19/22 RD INITIAL ASSESSMENT COMPLETED PLEASE REFER TO NUTRITION ASSESSMENT UNDER CARE ACTIVITY FOR ESTIMATED NUTRITIONAL NEEDS. 1. CONTINUE CLEAR LIQUID DIET TOLERATED 2. RECOMMEND ENSURE CLEAR TID -PROVIDES 1050 KCAL AND 60 GM PROTEIN DAILY 3. RECOMMEND SWALLOW EVAL BEFORE ADVANCING DIET 4. WHEN/IF MEDICALLY APPROPRIATE, RECOMMEND REGULAR DIET WITH TEXTURE MODIFICATIONS PER ST SWALLOW EVAL 5. RD TO FOLLOW-UP 3-5 DAYS, MODERATE RISK REVIEWED BY MARY LACY RD
[2022-06-19 16:00] VITALS: BP 92/57; PULSE 76; PULSE 81; RESP 16; TEMP 96.9; O2SAT 95
--- NOTE | 2022-06-19 19:30 | NUR ---
RECEIVED PT IN BED SMILING, FAMILY MEMBERS AT THE BEDSIDE. DENIES PAIN. NO ACUTE RESPIRATORY DISTRESS. SKIN WARM AND DRY TO TOUCH. ABDOMINAL DRESSING CLEAN DRY AND INTACT, HELEN X 1 BED IN THE LOWEST AND LOCKED POSITION FOR SAFETY, CALL LIGHT IN REACH
--- NOTE | 2022-06-19 19:50 | NUR ---
NO URINE OUTPUT SINCE REMOVAL OF GUILLERMO CATHETER AT 1PM, AM NURSE DID BLADDER SCAN NOTER [address] CAMACHO, PER MD RECHECK EVERY 4 HR IF GREATER THAN 300 OR NO OUTPUT UNTIL THE MORNING, RE-INSERT GUILLERMO CATHETER. WILL CARRY OUT ORDER.
[2022-06-19 20:00] VITALS: BP 111/72; PULSE 105; PULSE 77; RESP 18; TEMP 97.3; O2SAT 99
--- NOTE | 2022-06-19 20:20 | NUR ---
TYLENOL SCHEDULED FOR 2100 NOT GIVEN SINCE AM NURSE GAVE TYLENOL AT 1923, CURRENTLY PT DENIES PAIN.
--- NOTE | 2022-06-19 23:10 | NUR ---
BLADDER SCAN DONE, NOTED GREATER THEN 347ML OF URINE. EXPLAINED TO MOM THAT GUILLERMO CATHETER NEEDED TO BE INSERTED DUE TO URINARY RETENTION, MOM AGREED. INSERTED GUILLERMO CATHETER ORDERED BY DR. CAMACHO, PT TOLERATED WELL. EMPTIED 400 OF YELLOW URINE FROM THE CATHETER. CLEANED PT. MADE COMFORTABLE IN BED.
--- NOTE | 2022-06-20 01:00 | NUR ---
ROUNDING DONE, PT ASLEEP. NO S/SX OF PAIN. CALL LIGHT IN REACH.
[2022-06-20] MEDS: POTASSIUM CHL 20 MEQ/D5-1/2NS 1,000 ML IV SCH ×2 (03:48→22:42)
--- NOTE | 2022-06-20 03:50 | NUR ---
PATIENT HAD A BOWEL MOVEMENT, MODERATED AMOUNT OF SOFT STOOL. AM CARE RENDERED. PULLED UP AND MADE COMFORTABLE IN BED.
[2022-06-20 04:00] VITALS: BP 128/86; PULSE 85; RESP 18; TEMP 97.1; O2SAT 98
[2022-06-20] MEDS: ACETAMINOPHEN EXTRA STRENGTH 500 MG TAB PO SCH ×4 (06:21→22:07)
--- NOTE | 2022-06-20 06:21 | NUR ---
DUE MEDICATION GIVEN ORDERED, PT TOLERATED WELL. ALL NEEDS ATTENDED TO. NO DISTRESS NOTED. SAFETY PRECAUTIONS IN PLACE, CALL LIGHT REMAINS WITHIN REACH. MOM AT THE BEDSIDE.
[2022-06-20 08:00] VITALS: PULSE 79; RESP 18; O2SAT 94
[2022-06-20] MEDS: MEROPENEM 1,000 MG in NACL 0.9% 50 ML IV SCH ×2 (08:05→22:06)
[2022-06-20] MEDS: GAUZE TP SCH (13:00)
[2022-06-20 16:00] LABS: BASOPHILS % (AUTO) 0.6 % (0.0-2.0); EOSINOPHILS # (AUTO) 0.1 K/uL (0-0.4); EOSINOPHILS % (AUTO) 1.6 % (0.0-4.0); HEMATOCRIT 22.2 % (36-48); HEMOGLOBIN 7.4 g/dL (12.0-16.0); LYMPHOCYTES # (AUTO) 1.1 K/uL (2.5-16.5); LYMPHOCYTES % (AUTO) 20.5 % (20.5-51.1); MEAN CORPUSCULAR HEMOGLOBIN 29 pg (27-31); MEAN CORPUSCULAR HGB CONC 33 g/dL (33-37); MEAN CORPUSCULAR VOLUME 88.7 fL (80-94); MONOCYTES # (AUTO) 0.3 K/uL (0.8-1.0); MONOCYTES % (AUTO) 5.2 % (1.7-9.3); NEUTROPHILS % (AUTO) 72.1 % (42.2-75.2); PLATELET COUNT (AUTO) 241 K/uL (140-450); RED BLOOD CELL COUNT(AUTO) 2.51 MIL/uL (4.20-5.40); RED CELL DISTRIBUTION WIDTH 15.4 % (11.6-13.7)
[2022-06-20 16:06] LABS: ANION GAP 9.2 (8-16); CARBON DIOXIDE 21.8 mmol/L (21-32)
[2022-06-20 16:55] VITALS: BP 92/57; PULSE 76; RESP 16; TEMP 96.9; O2SAT 95
--- NOTE | 2022-06-20 18:13 | NUR ---
Dressing change done. [place] CDI and redressed with island dressing. R medial abcess with tunneling and undermining, packed with wet gauze, and covered with gauze. Pt with sufficient output out of chacon. Tylenol given as scheduled. Mother at bedside assisting with care.
[2022-06-20 20:00] VITALS: BP 130/75; PULSE 76; RESP 18; TEMP 97.6; O2SAT 95
--- NOTE | 2022-06-20 20:00 | NUR ---
PT AWAKE AND NOTED STABLE.
--- NOTE | 2022-06-20 21:00 | NUR ---
HEPARIN IS HELD DUE TO HEMOGLOBIN LAB RESULTS IS TRENDING DOWN.
[2022-06-20] MEDS ORDERED: MEROPENEM 1,000 MG VIAL IV ONE (22:04)
[2022-06-21] MEDS: POTASSIUM CHL 20 MEQ/D5-1/2NS 1,000 ML IV SCH (02:00)
[2022-06-21 04:00] VITALS: BP 127/77; PULSE 76; RESP 20; TEMP 97.7; O2SAT 95
--- NOTE | 2022-06-21 04:10 | NUR ---
ASSISTED WITH PERSONAL HYGIENE, PT HAS SMALL TO MEDIUM SOFT BLACK COLOR BM.
--- NOTE | 2022-06-21 05:30 | NUR ---
DRAIN 30CC FROM HELEN DRAIN.
--- NOTE | 2022-06-21 06:10 | NUR ---
PT HAS BM SMALL TO MODERATE DARK COLOR BM. NO FACIAL GRIMACING.
[2022-06-21 08:00] VITALS: PULSE 77; RESP 18; O2SAT 99
[2022-06-21] MEDS: MEROPENEM 1,000 MG in NACL 0.9% 50 ML IV SCH ×2 (08:21→21:56)
[2022-06-21] MEDS: ACETAMINOPHEN EXTRA STRENGTH 500 MG TAB PO SCH ×4 (08:21→21:57)
[2022-06-21] MEDS: GAUZE TP SCH (13:00)
[2022-06-21 16:00] VITALS: BP 112/69; PULSE 76; RESP 18; TEMP 98.2; O2SAT 97
--- NOTE | 2022-06-21 17:54 | NUR ---
Pt went to CT of abdomen today. Dressing change done today. Gauze saturated in sanguinous drainage. Wound bed continues to look pink with tunneling.
[2022-06-21 20:00] VITALS: BP 138/70; PULSE 76; PULSE 85; RESP 18; TEMP 98.1; O2SAT 97; O2SAT 99
--- NOTE | 2022-06-21 21:00 | NUR ---
HEPARIN IS HELD RELATED TO HGB IS GOING DOWN
[2022-06-22] VITALS (8 sets, daily range): BP systolic 99–150; BP diastolic 49–84; PULSE 76–91; RESP 16–22; TEMP 96.7–98.1; O2SAT 97–100
[2022-06-22 05:19] LABS: BASOPHILS # (AUTO) 0.1 K/uL (0.00-0.22); BASOPHILS % (AUTO) 0.8 % (0.0-2.0); EOSINOPHILS # (AUTO) 0.1 K/uL (0-0.4); EOSINOPHILS % (AUTO) 1.1 % (0.0-4.0); LYMPHOCYTES # (AUTO) 1.6 K/uL (2.5-16.5); LYMPHOCYTES % (AUTO) 22.7 % (20.5-51.1); MEAN CORPUSCULAR HEMOGLOBIN 29 pg (27-31); MEAN CORPUSCULAR HGB CONC 33 g/dL (33-37); MEAN CORPUSCULAR VOLUME 89.8 fL (80-94); MONOCYTES # (AUTO) 0.4 K/uL (0.8-1.0); MONOCYTES % (AUTO) 5.7 % (1.7-9.3); NEUTROPHILS # (AUTO) 4.9 K/uL (1.8-7.7); NEUTROPHILS % (AUTO) 69.7 % (42.2-75.2); PLATELET COUNT (AUTO) 298 K/uL (140-450); RED BLOOD CELL COUNT(AUTO) 1.87 MIL/uL (4.20-5.40); RED CELL DISTRIBUTION WIDTH 15.5 % (11.6-13.7); WHITE BLOOD COUNT (AUTO) 7.1 K/uL (4.8-10.8)
[2022-06-22 05:27] LABS: HEMATOCRIT 16.8 % (36-48); HEMOGLOBIN 5.5 g/dL (12.0-16.0)
[2022-06-22 05:32] LABS: ANION GAP 11.6 (8-16); CARBON DIOXIDE 22.8 mmol/L (21-32); POTASSIUM 4.4 mmol/L (3.5-5.1)
--- NOTE | 2022-06-22 05:41 | NUR ---
RECEIVED REPORT FROM LAB H&H = 5.4 AND HCT = 16.6. REPORTED TO PRIMARY DR. OLSEN, WAITING FOR REPLY.
--- NOTE | 2022-06-22 06:30 | NUR ---
DRAIN 10 CC OF HELEN DRAINAGE.
--- NOTE | 2022-06-22 06:35 | NUR ---
SURGICAL WOUND NOTED CLEAN AND DRY, NO SIGN/SYMPTOM OF INFECTION.
--- NOTE | 2022-06-22 06:53 | NUR ---
PT HAD 4X DARK BM THIS SHIFT.
[2022-06-22] MEDS: ACETAMINOPHEN EXTRA STRENGTH 500 MG TAB PO SCH ×3 (07:00→22:09)
--- NOTE | 2022-06-22 07:00 | NUR ---
MESSAGE DR. OLSEN 2X, WAITING FOR MD REPLY. ENDORSE TO DAY SHIFT NURSE GERARDO FOR CONTINUITY OF CARE. SAFETY MEASURES ARE IN PLACE.
[2022-06-22] MEDS: HYDROmorphone 1 MG/ML AMP IVP PRN (07:41)
[2022-06-22] MEDS: MEROPENEM 1,000 MG in NACL 0.9% 50 ML IV SCH ×2 (09:44→22:10)
--- NOTE | 2022-06-22 12:11 | NUR ---
PRBC #1 STARTED. VS: 95/53,16,82,97%,96.8F.
--- NOTE | 2022-06-22 12:35 | NUR ---
Pt's mother was given routine med for pt. She asked that it be dissolved in water. Upon returning to room w med crushed and in water, pt's mother asked that the medication be crushed and she would mix it b/c the cup of water was too much. Med discarded and pt's mother given the crushed med she could mix it for pt.
[2022-06-22] MEDS: POTASSIUM CHL 20 MEQ/D5-1/2NS 1,000 ML IV SCH (12:48)
[2022-06-22] MEDS: GAUZE TP SCH (13:00)
[2022-06-22 23:01] LABS: HEMATOCRIT 24.9 % (36-48); HEMOGLOBIN 8.5 g/dL (12.0-16.0)
[2022-06-23] MEDS: HYDROmorphone 1 MG/ML AMP IVP PRN (03:33)
--- NOTE | 2022-06-23 03:33 | NUR ---
PT COMPLAINTS OF SEVERE ABDOMINAL PAIN 09/17, PAIN MEDICATION DILAUDID ADMINISTERED ORDER.
[2022-06-23 04:00] VITALS: BP 136/78; PULSE 90; RESP 16; TEMP 97.2; O2SAT 100
[2022-06-23] MEDS: POTASSIUM CHL 20 MEQ/D5-1/2NS 1,000 ML IV SCH (05:33)
--- NOTE | 2022-06-23 07:25 | NUR ---
ASSUMED CONTINUITY OF CARE. PT. MOTHER ON BEDSIDE. INITIAL ASSESSMENT DONE. RE-ORIENTED PT. TO EVENTS AND SURROUNDINGS. KEEP COMFORTABLE ON BED. FALL PRECAUTION APPLIED. CALL LIGHT WITHIN REACH.
[2022-06-23] MEDS: ACETAMINOPHEN EXTRA STRENGTH 500 MG TAB PO SCH (07:30)
--- NOTE | 2022-06-23 07:51 | NUR ---
DR. CAMACHO, FERMIN CAME SPOKE TO PT. MOTHER AT BEDSIDE, D/C HELEN DRAIN.
[2022-06-23 08:00] VITALS: BP 127/70; PULSE 88; RESP 16; TEMP 97; O2SAT 100
[2022-06-23 08:16] LABS: BASOPHILS # (AUTO) 0.2 K/uL (0.00-0.22); BASOPHILS % (AUTO) 2.6 % (0.0-2.0); EOSINOPHILS # (AUTO) 0.1 K/uL (0-0.4); EOSINOPHILS % (AUTO) 1.1 % (0.0-4.0); HEMATOCRIT 21.3 % (36-48); HEMOGLOBIN 7.2 g/dL (12.0-16.0); LYMPHOCYTES # (AUTO) 1.9 K/uL (2.5-16.5); LYMPHOCYTES % (AUTO) 26.8 % (20.5-51.1); MEAN CORPUSCULAR HEMOGLOBIN 30 pg (27-31); MEAN CORPUSCULAR HGB CONC 34 g/dL (33-37); MEAN CORPUSCULAR VOLUME 89.1 fL (80-94); MONOCYTES # (AUTO) 0.4 K/uL (0.8-1.0); MONOCYTES % (AUTO) 5.2 % (1.7-9.3); NEUTROPHILS # (AUTO) 4.5 K/uL (1.8-7.7); NEUTROPHILS % (AUTO) 64.3 % (42.2-75.2); PLATELET COUNT (AUTO) 144 K/uL (140-450); RED BLOOD CELL COUNT(AUTO) 2.39 MIL/uL (4.20-5.40); RED CELL DISTRIBUTION WIDTH 15.4 % (11.6-13.7)
[2022-06-23 08:45] LABS: ANION GAP 9.6 (8-16); CARBON DIOXIDE 23.4 mmol/L (21-32); CREATININE 0.7 mg/dL (0.6-1.3)
[2022-06-23] MEDS: MEROPENEM 1,000 MG in NACL 0.9% 50 ML IV SCH ×2 (08:48→21:20)
--- NOTE | 2022-06-23 09:08 | NUR ---
DR. PINEDA CAME SPOKE TO PT. MOTHER AND PT. FATHER AT BEDSIDE.
--- NOTE | 2022-06-23 09:13 | NUR ---
INFORMED DR. PINEDA ABOUT PT. IVF. GOT ORDER TO CHANGE IVF TO D5 1/2 NS AT 60ML/HR.
[2022-06-23] MEDS: DEXT 5% / NACL 0.45% 1,000 ML IV SCH (09:28)
--- NOTE | 2022-06-23 10:41 | NUR ---
ZOHREH SUBRAMANIAN CAME FOR PT. ELIOS CONSULT.
[2022-06-23] MEDS: GAUZE TP SCH (13:00)
[2022-06-23 16:00] VITALS: BP 106/76; PULSE 87; RESP 16; TEMP 97.1; O2SAT 98
--- NOTE | 2022-06-23 16:40 | NUR ---
06/23/22 RD FOLLOW UP COMPLETED PLEASE REFER TO NUTRITION ASSESSMENT UNDER CARE ACTIVITY FOR ESTIMATED NUTRITIONAL NEEDS. 1. CONTINUE PUREE, NECTAR THICK LIQUID DIET PER ST TOLERATED -[facility] WILL PROVIDE PREFERRED FOODS 2. RECOMMEND ENSURE CLEAR BID -PROVIDES ADDITIONAL 480 KCAL AND 16 GM PROTEIN DAILY 3. IF TF READY TO BE STARTED, RECOMMEND PIVOT 1.5 AT GOAL RATE 40 ML/HR, FWF 150 ML Q6H TOLERATED - PROVIDES 960 ML TOTAL VOLUME, 1440 KCAL, 89 GM PROTEIN AND 1328 ML FREE WATER DAILY MEETING 100% ESTIMATED KCAL AND PROTEIN NEEDS; ADEQUATE - START TF AT 1O ML/HR INCREASE BY 1O ML Q4H UNTIL GOAL IS REACHED TOLERATED 4. RD TO FOLLOW-UP 2-3 DAYS, HIGH RISK REVIEWED BY MARY LACY RD
--- NOTE | 2022-06-23 19:25 | NUR ---
REPORT GIVEN TO PARKER TOURE. IN STABLE CONDITION.
--- NOTE | 2022-06-23 19:30 | NUR ---
RECEIVED PT FROM AM NURSE FOR CONTINUITY OF CARE. PT IS STABLE
[2022-06-23 20:00] VITALS: BP 122/64; PULSE 79; RESP 16; RESP 18; TEMP 97.9; O2SAT 98
[2022-06-24] MEDS: ACETAMINOPHEN 325 MG TAB PO PRN (00:28)
--- NOTE | 2022-06-24 01:00 | NUR ---
PATIENT ASLEEP, NO DISTRESS NOTED
[2022-06-24] MEDS: DEXT 5% / NACL 0.45% 1,000 ML IV SCH ×2 (02:21→18:52)
[2022-06-24 04:00] VITALS: BP 107/57; PULSE 84; RESP 16; RESP 18; TEMP 98.2; O2SAT 98
[2022-06-24] MEDS: MEROPENEM 1,000 MG in NACL 0.9% 50 ML IV SCH ×3 (05:00→21:43)
[2022-06-24 07:09] LABS: BASOPHILS % (AUTO) 0.5 % (0.0-2.0); EOSINOPHILS % (AUTO) 0.7 % (0.0-4.0); LYMPHOCYTES # (AUTO) 1.2 K/uL (2.5-16.5); LYMPHOCYTES % (AUTO) 27.3 % (20.5-51.1); MEAN CORPUSCULAR HEMOGLOBIN 31 pg (27-31); MEAN CORPUSCULAR HGB CONC 34 g/dL (33-37); MEAN CORPUSCULAR VOLUME 89.9 fL (80-94); MONOCYTES # (AUTO) 0.2 K/uL (0.8-1.0); MONOCYTES % (AUTO) 5.3 % (1.7-9.3); NEUTROPHILS # (AUTO) 2.9 K/uL (1.8-7.7); NEUTROPHILS % (AUTO) 66.2 % (42.2-75.2); PLATELET COUNT (AUTO) 147 K/uL (140-450); RED BLOOD CELL COUNT(AUTO) 2.03 MIL/uL (4.20-5.40); RED CELL DISTRIBUTION WIDTH 15.1 % (11.6-13.7); WHITE BLOOD COUNT (AUTO) 4.5 K/uL (4.8-10.8)
[2022-06-24 07:10] LABS: ANION GAP 9.6 (8-16); CARBON DIOXIDE 24.2 mmol/L (21-32); CREATININE 0.9 mg/dL (0.6-1.3); MAGNESIUM 1.9 mg/dL (1.8-2.4); POTASSIUM 3.8 mmol/L (3.5-5.1); TOTAL BILIRUBIN 0.2 mg/dL (0.0-1.0)
--- NOTE | 2022-06-24 07:26 | NUR ---
RECEIVED REPORT FROM WOOL PRESSER NURSE, PARKER, FOR CONTINUITY OF CARE. PT IN BED RESTING AT THIS TIME. FAMILY AT BEDSIDE. PT RESPIRATIONS ARE EVEN AND UNLABORED ON ROOM AIR. NO SIGNS OF DISTRESS NOTED. PT IS ALERT AND ORIENTED TO NAME, HAS HX OF DOWN SYNDROME. PT IS ON PUREE DIET, PER WOOL PRESSER NURSE, PT HAS POOR PO INTAKE. PT ABD IS NONTENDER, NONDISTENDED WITH BOWEL SOUNDS PRESENT. PT HAS SURGICAL SITES TO ABD NOTED, COVERED WITH GAUZE. PT HAS GUILLERMO CATHETER IN PLACE, DRAINING YELLOW URINE. PT HAS IV TO R WRIST, 20G. CALL LIGHT WITHIN REACH. ALL SAFETY MEASURES IN PLACE.
[2022-06-24] MEDS: ACETAMINOPHEN EXTRA STRENGTH 500 MG TAB PO SCH ×2 (07:30→11:59)
[2022-06-24 07:45] LABS: HEMATOCRIT 18.2 % (36-48); HEMOGLOBIN 6.2 g/dL (12.0-16.0)
[2022-06-24 08:00] VITALS: PULSE 74; RESP 18; TEMP 97.6; O2SAT 100
--- NOTE | 2022-06-24 09:10 | NUR ---
PT MOTHER AT BEDSIDE, COMPLAINING OF PUREE DIET. EDUCATED HER ON NEED FOR PUREE DIET. PT MOTHER STATES "SHE DOESN'T LIKE IT. IT DOESN'T LOOK GOOD OR TASTE GOOD. I WANT HER TO HAVE REGULAR FOOD. I HAVE BEEN GIVING HER REGULAR MILK AND BROTH AND SHE EATS IT WELL". EDUCATED PT MOTHER ON NECTAR THICK FLUIDS. PT MOTHER CONTINUES TO STATE "I WANT HER TO HAVE REGULAR FOOD. I KNOW SHE HAS PROBLEMS SWALLOWING ANY TYPE OF FOOD BUT ITS WHAT SHE LIKES". DR PINEDA MADE AWARE. NEW ORDER FOR ST RE-EVAL. ALSO INFORMED PT MOTHER THAT UNTIL ST RE-EVAL IS DONE, PT MUST ADHERE TO PUREE DIET WITH NECTAR THICK LIQUIDS. PT MOTHER NODDED IN AGREEMENT.
--- NOTE | 2022-06-24 09:23 | NUR ---
WOUND CARE NOTE: -MID ABD WOUND PIPPA DRY AND SECURED NO S/S OF WOUND DEHISCENCE. -LLQ ABD SURGICAL WOUND [id number] MODERATE AMOUNT SEROUS SANGUINOUS DRAINAGE, WOUND BED PINK, NO ODOR, ABHI-WOUND SKIN DRY AND CLEAN. WOUND DRESSING CHANGE. PACK WITH IODOFORM DRESSING. POC DISCUSSED WITH PRIMARY NURSE VASQUEZ. AT BED SIDE POC DISCUSSED WITH RECOMMENDATION HOME HEALTH FOLLOW UP WOUND CARE WHEN DISCHARGE.
--- NOTE | 2022-06-24 09:30 | NUR ---
PT BROTHER CALLED ASKING TO SPEAK WITH PT NURSE. PT BROTHER ASKING REGARDING ST RE-EVAL AND CHANGE IN PT FOOD CONSISTENCY. EDUCATED PT BROTHER REGARDING PUREE DIET WITH NECTAR THICK FLUIDS, WELL ST EVAL. PER PT BROTHER "FOR THE ST EVAL, CAN WE GET A SPEECH THERAPIST WHO IS FEMALE AND ARMENIAN SPEAKING. THE LAST ONE WE HAD IN THE ICU WAS JENELLE, AND ASKED MY MOTHER TO LEAVE THE BEDSIDE. I DONT WANT THAT REBEKAH BACK SEEING MY SISTER". ASKED PT BROTHER IF HE KNEW THE NAME OF THE SPEECH THERAPIST, PER PT BROTHER "I DON'T KNOW HIS NAME, I JUST KNOW HE WAS OLDER. I JUST DONT WANT THAT REBEKAH IN THE ROOM. MY MOM SAID HE MADE HER FEEL BAD AND ASKED HER TO LEAVE AND WAIT IN THE WAITING ROOM".
[2022-06-24] MEDS: GAUZE TP SCH (13:11)
--- NOTE | 2022-06-24 13:48 | NUR ---
BLOOD TRANSFUSION STARTED. RESPIRATIONS ARE EVEN AND UNLABORED. NO SIGNS OF PAIN OR DISCOMFORT. FAMILY AT BEDSIDE.
[2022-06-24] MEDS ORDERED: ACETAMINOPHEN EXTRA STRENGTH 500 MG TAB PO PRN (14:00)
[2022-06-24 16:00] VITALS: BP 99/75; PULSE 80; RESP 18; TEMP 98; O2SAT 98
--- NOTE | 2022-06-24 16:20 | NUR ---
BLOOD TRANSFUSION COMPLETE. PT TOLERATED WELL.
--- NOTE | 2022-06-24 18:12 | NUR ---
PT WAS SEEN FOR DYSPHAGIA. PT WAS ABLE TO SAFELY SWALLOW PUREE DIET WITH THIN LIQUID. MILD TO MODERATE DIFFICULTY WITH MASTICATION SKILLS FOR MS DIET. RECOMMENDATION PUREE DIET WITH THIN LIQUID
--- NOTE | 2022-06-24 18:25 | NUR ---
P.T. NOTES P.T. EVAL COMPLETED; REFER TO EVAL FOR DETAILS.
--- NOTE | 2022-06-24 18:30 | NUR ---
ST HERE FOR RE-EVAL. PER SPEECH THERAPIST, CONTINUE WITH PUREE DIET.
--- NOTE | 2022-06-24 19:29 | NUR ---
ENDORSED PT TO MACHINE REPAIRER MAINTENANCE NURSE, RAFAEL, FOR CONTINUITY OF CARE. PT IS STABLE.
--- NOTE | 2022-06-24 19:42 | NUR ---
RECEIVED REPORT FROM DAY SHIFT NURSE FOR CONTINUITY OF CARE. PT IS AWAKE, FAMILY AT BEDSIDE, RESPONDS TO NAME AND SIMPLE QUESTION/PHRASES. PT IS GREEK SPEAKING. BED BOUND WITH GUILLERMO CATHETER IN PLACE. PT IS ON ROOM AIR SATING AT 95%. PT HAS SURGICAL SITE ACROSS LOWER ABDOMEN. DRESSING DRY AND INTACT. IV SITE LOCATED AT RIGHT WRIST 20 GAUGE, INTACT AND PATENT. MOTHER TO STAY THE NIGHT WITH PT.
--- NOTE | 2022-06-24 19:43 | NUR ---
Patient's Plan of Care was discussed and reviewed with TAHIR: RAFAEL
[2022-06-24 20:00] VITALS: PULSE 80; RESP 16; TEMP 98.9; O2SAT 94
--- NOTE | 2022-06-24 21:09 | NUR ---
SCHEDULED MEDICATIONS ADMINISTERED. PT TOLERATED WELL. NO OTHER SIGNS OF DISTRESS NOTED. WILL CONTINUE MONITORING THE PT
--- NOTE | 2022-06-24 23:59 | NUR ---
PT SLEEPING COMFORTABLY, IV INFUSING WELL. RESPIRATIONS EVEN AND UNLABORED. WILL CONTINUE MONITORING.
[2022-06-25] VITALS: BP 104/56; PULSE 80; RESP 16; TEMP 98.9; O2SAT 94
--- NOTE | 2022-06-25 03:40 | NUR ---
CLEANED AND CHANGED THE PATIENT, 450 ML DRAINED FROM GUILLERMO, 1 BM REPORTED THIS SHIFT. CHANGED SURGICAL SITE DRESSING. WILL CONTINUE MONITORING THE PT.
[2022-06-25 04:00] VITALS: BP 108/64; PULSE 74; RESP 18; TEMP 98.7; O2SAT 96
[2022-06-25] MEDS: MEROPENEM 1,000 MG in NACL 0.9% 50 ML IV SCH ×3 (05:13→21:06)
[2022-06-25] MEDS: DEXT 5% / NACL 0.45% 1,000 ML IV SCH ×3 (05:47→21:42)
[2022-06-25 06:50] LABS: ALBUMIN 1.1 g/dL (3.4-5.0); CARBON DIOXIDE 24.7 mmol/L (21-32); CREATININE 0.9 mg/dL (0.6-1.3); MAGNESIUM 1.9 mg/dL (1.8-2.4); POTASSIUM 3.7 mmol/L (3.5-5.1); TOTAL BILIRUBIN 0.2 mg/dL (0.0-1.0)
[2022-06-25 06:57] LABS: BASOPHILS % (AUTO) 0.6 % (0.0-2.0); HEMATOCRIT 22.9 % (36-48); HEMOGLOBIN 7.8 g/dL (12.0-16.0); LYMPHOCYTES # (AUTO) 1.1 K/uL (2.5-16.5); LYMPHOCYTES % (AUTO) 27.2 % (20.5-51.1); MEAN CORPUSCULAR HEMOGLOBIN 30 pg (27-31); MEAN CORPUSCULAR HGB CONC 34 g/dL (33-37); MEAN CORPUSCULAR VOLUME 87.1 fL (80-94); MONOCYTES # (AUTO) 0.2 K/uL (0.8-1.0); MONOCYTES % (AUTO) 5.4 % (1.7-9.3); NEUTROPHILS # (AUTO) 2.7 K/uL (1.8-7.7); NEUTROPHILS % (AUTO) 65.8 % (42.2-75.2); PLATELET COUNT (AUTO) 137 K/uL (140-450); RED BLOOD CELL COUNT(AUTO) 2.63 MIL/uL (4.20-5.40); RED CELL DISTRIBUTION WIDTH 16.2 % (11.6-13.7); WHITE BLOOD COUNT (AUTO) 4.1 K/uL (4.8-10.8)
--- NOTE | 2022-06-25 07:25 | NUR ---
RECEIVED PT FROM DRY ROOM ATTENDANT NURSE FOR CONTINUITY OF CARE. PT IS SLEEPING. VISIBLE CHEST RISE/FALL. RESPIRATIONS EVEN AND UNLABORED ON RA. SKIN WARM AND DRY. IV ON R WRIST INFUSING D5 1/2 NS @60CC/HR. GUILLERMO DRAINING TO GRAVITY. ALL SAFETY PRECAUTIONS IN PLACE. FAMILY MEMBER AT BEDSIDE.
[2022-06-25 08:00] VITALS: BP 109/66; PULSE 73; RESP 18; TEMP 97.5; O2SAT 100
--- NOTE | 2022-06-25 13:32 | NUR ---
COVERING IV MEDS FOR ADONAY. ADMINISTERED 1300 [address] VIA IV ORDERED.
[2022-06-25] MEDS: GAUZE TP SCH (13:58)
[2022-06-25 16:00] VITALS: BP 109/66; PULSE 73; RESP 18; TEMP 97.5; O2SAT 100
--- NOTE | 2022-06-25 19:30 | NUR ---
ENDORSED PT TO PLATFORM LOADER NURSE FOR CONTINUITY OF CARE. PT IS STABLE.
--- NOTE | 2022-06-25 19:31 | NUR ---
RECD. RESTING IN BED, AWAKE, A/OX1, MENTALLY CHALLENGED. RESPIRATION EVEN AND UNLABORED. IV OF D5 0.45% NS INFUSING AT 60 ML/HR, LEFT AC G24. INCISION IN THE ABDOMEN COVERED WITH DRESSING DRY AND INTACT. ON IV ANTIBIOTICS. F/C PATENT DRAINING CLEAR YELLOW URINE. MOTHER AT THE BEDSIDE. NO APPEARANCE OF PAIN OR DISCOMFORT NOTED, FLACC -0.
[2022-06-25 20:00] VITALS: PULSE 78; PULSE 88; RESP 18; TEMP 97.6; O2SAT 100; O2SAT 98
--- NOTE | 2022-06-25 20:00 | NUR ---
RIGHT HAND AND ARM SWOLLEN WITH ICE PACKS ALREADY IN PLACED. ELEVATED RIGHT ARM ON A PILLOW.
--- NOTE | 2022-06-25 20:00 | NUR ---
Patient's Plan of Care was discussed and reviewed with STRING CUTTER: SHOAIB PUENTES
[2022-06-26] VITALS: BP 104/60; PULSE 84; RESP 18; TEMP 99.1; O2SAT 100
--- NOTE | 2022-06-26 01:00 | NUR ---
IV INFILTRATED, WILL FIND A NEW IV LINE.
--- NOTE | 2022-06-26 02:20 | NUR ---
NEW IV LINE INSERTED AT THE LEFT HAND G22 BY THERESE PEREZ.
[2022-06-26] MEDS: DEXT 5% / NACL 0.45% 1,000 ML IV SCH ×2 (03:55→20:35)
--- NOTE | 2022-06-26 04:00 | NUR ---
VS STABLE. SLEEPING COMFORTABLY IN BED, RESPIRATION EVEN AND UNLABORED.
[2022-06-26] MEDS: MEROPENEM 1,000 MG in NACL 0.9% 50 ML IV SCH ×3 (06:08→20:47)
--- NOTE | 2022-06-26 07:25 | NUR ---
CONDITION REMAIN STABLE. ENDORSED TO AM SHIFT NURSE FOR CONTINUITY OF CARE.
[2022-06-26 08:00] VITALS: BP 109/66; PULSE 73; PULSE 78; PULSE 87; RESP 18; TEMP 97.5; O2SAT 100; O2SAT 98
[2022-06-26 08:07] LABS: BASOPHILS % (AUTO) 0.5 % (0.0-2.0); EOSINOPHILS % (AUTO) 0.8 % (0.0-4.0); HEMATOCRIT 21.5 % (36-48); HEMOGLOBIN 7.2 g/dL (12.0-16.0); LYMPHOCYTES # (AUTO) 1.2 K/uL (2.5-16.5); LYMPHOCYTES % (AUTO) 31.6 % (20.5-51.1); MEAN CORPUSCULAR HEMOGLOBIN 30 pg (27-31); MEAN CORPUSCULAR HGB CONC 33 g/dL (33-37); MEAN CORPUSCULAR VOLUME 88.4 fL (80-94); MONOCYTES # (AUTO) 0.2 K/uL (0.8-1.0); NEUTROPHILS # (AUTO) 2.4 K/uL (1.8-7.7); NEUTROPHILS % (AUTO) 61.1 % (42.2-75.2); PLATELET COUNT (AUTO) 139 K/uL (140-450); RED BLOOD CELL COUNT(AUTO) 2.43 MIL/uL (4.20-5.40); RED CELL DISTRIBUTION WIDTH 15.9 % (11.6-13.7); WHITE BLOOD COUNT (AUTO) 3.9 K/uL (4.8-10.8)
[2022-06-26 09:34] LABS: ANION GAP 6.5 (8-16); CARBON DIOXIDE 26.1 mmol/L (21-32); CREATININE 0.7 mg/dL (0.6-1.3); POTASSIUM 3.6 mmol/L (3.5-5.1); TOTAL BILIRUBIN 0.2 mg/dL (0.0-1.0)
[2022-06-26] MEDS: GAUZE TP SCH (13:00)
--- NOTE | 2022-06-26 14:55 | NUR ---
06/26/22 RD FOLLOW UP COMPLETED PLEASE REFER TO NUTRITION ASSESSMENT UNDER CARE ACTIVITY FOR ESTIMATED NUTRITIONAL NEEDS. 1. CONTINUE MECHANICAL SOFT GROUND TEXTURE DIET PER ST RECOMMENDATION TOLERATED -[facility]NS WILL CONTINUE TO PROVIDE PREFERRED FOODS 2. MONITOR PO INTAKE 3. IF TF READY TO BE STARTED, RECOMMEND PIVOT 1.5 AT GOAL RATE 40 ML/HR, FWF 150 ML Q6H TOLERATED - PROVIDES 960 ML TOTAL VOLUME, 1440 KCAL, 89 GM PROTEIN AND 1328 ML FREE WATER DAILY MEETING 100% ESTIMATED KCAL AND PROTEIN NEEDS; ADEQUATE - START TF AT 1O ML/HR INCREASE BY 1O ML Q4H UNTIL GOAL IS REACHED TOLERATED 4. RD TO FOLLOW-UP 3-5 DAYS, MODERATE RISK REVIEWED BY MARY LACY RD
[2022-06-26 16:00] VITALS: BP 109/66; PULSE 73; RESP 18; TEMP 97.5; O2SAT 100
[2022-06-26 17:06] VITALS: TEMP 97.6
[2022-06-26 20:00] VITALS: PULSE 89; RESP 20; O2SAT 98
[2022-06-27] VITALS: BP 120/70; PULSE 80; RESP 20; TEMP 96.5; O2SAT 100
[2022-06-27] MEDS: MEROPENEM 1,000 MG in NACL 0.9% 50 ML IV SCH ×3 (04:28→20:26)
[2022-06-27 06:02] LABS: BASOPHILS % (AUTO) 0.7 % (0.0-2.0); EOSINOPHILS % (AUTO) 0.9 % (0.0-4.0); HEMATOCRIT 23.3 % (36-48); HEMOGLOBIN 7.8 g/dL (12.0-16.0); LYMPHOCYTES # (AUTO) 1.1 K/uL (2.5-16.5); MEAN CORPUSCULAR HEMOGLOBIN 30 pg (27-31); MEAN CORPUSCULAR HGB CONC 33 g/dL (33-37); MEAN CORPUSCULAR VOLUME 89.4 fL (80-94); MONOCYTES # (AUTO) 0.2 K/uL (0.8-1.0); MONOCYTES % (AUTO) 6.5 % (1.7-9.3); NEUTROPHILS # (AUTO) 2.1 K/uL (1.8-7.7); NEUTROPHILS % (AUTO) 59.9 % (42.2-75.2); PLATELET COUNT (AUTO) 161 K/uL (140-450); RED BLOOD CELL COUNT(AUTO) 2.61 MIL/uL (4.20-5.40); RED CELL DISTRIBUTION WIDTH 16.2 % (11.6-13.7); WHITE BLOOD COUNT (AUTO) 3.5 K/uL (4.8-10.8)
[2022-06-27 06:08] LABS: ALBUMIN 1.1 g/dL (3.4-5.0); CARBON DIOXIDE 26.6 mmol/L (21-32); CREATININE 0.9 mg/dL (0.6-1.3); POTASSIUM 3.6 mmol/L (3.5-5.1); TOTAL BILIRUBIN 0.2 mg/dL (0.0-1.0)
--- NOTE | 2022-06-27 07:26 | NUR ---
RECEIVED PT FROM NAIL TECH NURSE FOR CONTINUITY OF CARE. PT IS SLEEPING, VISIBLE CHEST RISE AND FALL. RESPIRATIONS EVEN AND UNLABORED ON RA. GUILLERMO IN PLACE DRAINING TO GRAVITY. IV ON L HAND 20G, INFUSING IVF @60/CCHR. ALL SAFETY PRECAUTIONS IN PLACE. FAMILY AT BEDSIDE.
[2022-06-27 08:00] VITALS: BP 122/71; PULSE 83; RESP 18; RESP 20; TEMP 97.2; TEMP 98; O2SAT 100; O2SAT 98
[2022-06-27] MEDS: GAUZE TP SCH (13:07)
[2022-06-27] MEDS: DEXT 5% / NACL 0.45% 1,000 ML IV SCH (13:15)
[2022-06-27 16:00] VITALS: BP 107/64; PULSE 81; RESP 18; TEMP 97.9; O2SAT 100
--- NOTE | 2022-06-27 19:14 | NUR ---
ENDORSED PT TO GOLF CART MECHANIC NURSE FOR CONTINUITY OF CARE. PT IS STABLE.
--- NOTE | 2022-06-27 19:30 | NUR ---
RECEIVED REPORT FROM DAY SHIFT RN FOR CONTINUITY OF CARE. PT AWAKE AND ALERT. PT IS WITH FAMILY BY BEDSIDE. NOT IN ANY DISTRESS. ON RA SATING 94%. PT HAS LEFT HAND 22 GAUGE RUNNING D5 1/2 NS 60 CC/HR. POC DISCUSSED. SAFETY MEASURES TAKEN. WILL CONTINUE TO MONITOR THE PT.
[2022-06-27 20:00] VITALS: PULSE 77; RESP 18; TEMP 97.8; O2SAT 100; O2SAT 94
--- NOTE | 2022-06-27 20:26 | NUR ---
SCHEDULE MEDICATIONS GIVEN. NO ADVERSE REACTION NOTED. WILL CONTINUE TO MONITOR THE PT.
--- NOTE | 2022-06-28 | NUR ---
PT IS SLEEPING COMFORTABLY IN BED. NOT IN ANY DISTRESS. BREATHING EVEN AND UNLABORED. WILL CONTINUE TO MONITOR THE PT.
[2022-06-28 04:00] VITALS: BP 145/69; PULSE 84; RESP 18; TEMP 97.4; O2SAT 98
--- NOTE | 2022-06-28 05:00 | NUR ---
CHECKED ON PT. PT IS SLEEPING IN BED COMFORTABLY. NOT IN ANY DISTRESS. BREATHING EVEN AND UNLABORED. CALL LIGHT WITHIN REACH. WILL CONTINUE TO MONITOR THE PT.
[2022-06-28 05:19] LABS: HEMOGLOBIN 7.9 g/dL (12.0-16.0); MONOCYTES # (AUTO) 0.2 K/uL (0.8-1.0); WHITE BLOOD COUNT (AUTO) 3.4 K/uL (4.8-10.8)
[2022-06-28] MEDS: MEROPENEM 1,000 MG in NACL 0.9% 50 ML IV SCH ×3 (05:26→20:10)
[2022-06-28 05:27] LABS: BASOPHILS % (AUTO) 0.8 % (0.0-2.0); EOSINOPHILS % (AUTO) 1.1 % (0.0-4.0); HEMATOCRIT 23.8 % (36-48); LYMPHOCYTES # (AUTO) 1.2 K/uL (2.5-16.5); LYMPHOCYTES % (AUTO) 35.1 % (20.5-51.1); MEAN CORPUSCULAR HEMOGLOBIN 29 pg (27-31); MEAN CORPUSCULAR HGB CONC 33 g/dL (33-37); MEAN CORPUSCULAR VOLUME 88.7 fL (80-94); MONOCYTES % (AUTO) 5.6 % (1.7-9.3); NEUTROPHILS # (AUTO) 1.9 K/uL (1.8-7.7); NEUTROPHILS % (AUTO) 57.4 % (42.2-75.2); PLATELET COUNT (AUTO) 169 K/uL (140-450); RED BLOOD CELL COUNT(AUTO) 2.69 MIL/uL (4.20-5.40); RED CELL DISTRIBUTION WIDTH 16.3 % (11.6-13.7)
[2022-06-28] MEDS: DEXT 5% / NACL 0.45% 1,000 ML IV SCH ×2 (05:55→21:50)
[2022-06-28 05:58] LABS: ANION GAP 8.4 (8-16); CREATININE 0.7 mg/dL (0.6-1.3); MAGNESIUM 1.9 mg/dL (1.8-2.4); POTASSIUM 3.4 mmol/L (3.5-5.1); TOTAL BILIRUBIN 0.1 mg/dL (0.0-1.0)
--- NOTE | 2022-06-28 07:15 | NUR ---
ENDORSED PT TO DAY SHIFT RN FOR CONTINUITY OF CARE. PT IS STABLE.
[2022-06-28 08:00] VITALS: BP 134/108; PULSE 81; RESP 16; TEMP 98.1; O2SAT 97
[2022-06-28] MEDS ORDERED: KCL 20 MEQ IN 100 mL PREMIX 200 ML IV PRN (09:45)
[2022-06-28] MEDS ORDERED: POTASSIUM CHLORIDE 10 MEQ TABER PO PRN (09:45)
[2022-06-28] MEDS ORDERED: MAG SULF 2000 MG/WATER PREMIX 50 ML IV PRN (09:45)
[2022-06-28] MEDS ORDERED: MAGNESIUM OXIDE 400 MG TAB PO PRN (09:45)
[2022-06-28] MEDS ORDERED: POTASSIUM CHLORIDE 10 MEQ TABER PO ONE (09:45)
[2022-06-28] MEDS: GAUZE TP SCH (13:15)
[2022-06-28 16:00] VITALS: BP 99/63; PULSE 76; RESP 16; TEMP 98; O2SAT 98
--- NOTE | 2022-06-28 19:10 | NUR ---
RECEIVED PT IN BED AWAKE, ALERT. MOM AT THE BEDSIDE. DENIES PAIN. NO ACUTE RESPIRATORY DISTRESS NOTED. ABDOMINAL DRESSING CLEAN DRY AND INTACT. IVF INFUSING WELL ORDERED. IVF INFUSING WELL ORDERED. SAFETY PRECAUTIONS IN PLACE, CALL LIGHT IN REACH.
[2022-06-28 20:00] VITALS: BP 105/72; PULSE 78; PULSE 81; RESP 16; TEMP 98.1; O2SAT 98
--- NOTE | 2022-06-28 20:10 | NUR ---
SCHEDULED MEDICATIONS GIVEN, PT TOLERATED WELL.
[2022-06-29 04:00] VITALS: BP 107/71; PULSE 90; RESP 16; TEMP 97.4; O2SAT 100
--- NOTE | 2022-06-29 04:00 | NUR ---
AM CARE RENDERED, REPOSITIONED FOR COMFORT. VITAL SIGNS TAKEN AND DOCUMENTED. VITAL SIGNS STABLE.
[2022-06-29] MEDS: MEROPENEM 1,000 MG in NACL 0.9% 50 ML IV SCH ×3 (04:20→21:11)
[2022-06-29] MEDS: DEXT 5% / NACL 0.45% 1,000 ML IV SCH (04:20)
--- NOTE | 2022-06-29 06:43 | NUR ---
PATIENT IS ASLEEP. ALL NEEDS ATTENDED TO. NO DISTRESS NOTED. SAFETY PRECAUTIONS MAINTAINED DURING THE SHIFT, CALL LIGHT REMAINS WITHIN REACH. MOTHER AT THE BEDSIDE.
[2022-06-29 08:00] VITALS: BP 110/61; PULSE 82; RESP 16; TEMP 96.9; O2SAT 100
[2022-06-29 08:35] LABS: PROTHROMBIN TIME 13.7 secs (10.8-13.4)
[2022-06-29] MEDS ORDERED: NALOXONE 0.4 MG/ML VIAL ONE (13:25)
[2022-06-29] MEDS ORDERED: FLUMAZENIL 0.5 MG/5 ML VIAL IVP ONE (13:25)
[2022-06-29] MEDS ORDERED: fentaNYL citrate 0.05 MG/ML VIAL ONE (13:26)
[2022-06-29] MEDS ORDERED: MIDAZOLAM 5 MG/5 ML VIAL ONE (13:26)
[2022-06-29] MEDS: GAUZE TP SCH (13:28)
[2022-06-29] MEDS ORDERED: LIDOCAINE 1% 500 MG/50 ML VIAL ONE (14:06)
[2022-06-29 16:00] VITALS: BP 98/62; PULSE 71; RESP 16; TEMP 98; O2SAT 99
--- NOTE | 2022-06-29 19:37 | NUR ---
ENDORSE PATIENT IN STABLE CONDITION TO PM SHIFT NURSE WHILE D5 1/2 NS INFUSING @60ML/HR VIA RAC. MOTHER AT BESIDE, US GUIDE ABDOMINAL ABSCESS DRAIN ASPIRATION DONE TODAY.
--- NOTE | 2022-06-29 19:38 | NUR ---
RECEIVED REPORT FROM AM NURSE FOR CONTINUITY OF CARE. PATIENT IN BED RESTING ON ROOM AIR. NO ACUTE DISTRESS NOTED. IVF INFUSING ORDERED. GUILLERMO CATHETER DRAINING CLEAR YELLOW OUTPUT. ALL SAFETY PRECAUTIONS ARE IN PLACE. CALL LIGHT WITHIN REACH.
[2022-06-29 20:00] VITALS: BP 102/62; PULSE 79; RESP 17; TEMP 97.7; O2SAT 98
--- NOTE | 2022-06-29 21:11 | NUR ---
ADMINISTERED SCHEDULED MEDICATIONS ORDERED.
[2022-06-29 21:56] LABS: APPEARANCE,SPUN,BODY FLUID BLOODY (CLEAR); APPEARANCE,UNSPUN,BODY FLUID BLOODY (CLEAR); SPECIMENTYPE,BODY FLUID ABD WALL ABCESS
[2022-06-29 21:57] LABS: COLOR,BODY FLUID RED (LT YELLOW); POLYNUCLEAR, BODY FLUID 95 %; RBC, BODY FLUID 10000 /cu. mm.
[2022-06-29 21:58] LABS: TOTAL VOLUME,BODY FLUID 8 mL
[2022-06-30 04:00] VITALS: BP 103/66; PULSE 83; RESP 17; TEMP 97.8; O2SAT 97
[2022-06-30] MEDS: MEROPENEM 1,000 MG in NACL 0.9% 50 ML IV SCH ×3 (05:33→20:41)
[2022-06-30] MEDS: DEXT 5% / NACL 0.45% 1,000 ML IV SCH (07:55)
[2022-06-30 08:00] VITALS: PULSE 73; RESP 18; TEMP 97.3; O2SAT 97
[2022-06-30] MEDS: GAUZE TP SCH (13:00)
[2022-06-30] MEDS: ACETAMINOPHEN 325 MG TAB PO PRN (13:43)
[2022-06-30 16:00] VITALS: BP_SYST 100; BP_SYST 113; BP_DIAS 58; BP_DIAS 75; PULSE 74; PULSE 89; RESP 18; TEMP 97.5; TEMP 97.8; O2SAT 100; O2SAT 97
--- NOTE | 2022-06-30 19:20 | NUR ---
RECEIVED PT IN BED AWAKE, ALERT AND ORIENTED. FAMILY MEMBERS AT THE BEDSIDE. DENIES PAIN AT THIS TIME. NO ACUTE RESPIRATORY DISTRESS NOTED. SAFETY PRECAUTIONS IN PLACE, CALL LIGHT IN REACH.
[2022-06-30 20:00] VITALS: BP 113/67; PULSE 74; PULSE 79; RESP 17; RESP 18; TEMP 97.7; O2SAT 98
--- NOTE | 2022-06-30 20:41 | NUR ---
IV ACCIDENTALLY GOT PULLED PUT, STARTED IN IN THE LEFT AC GAGUGE 22 X 1 ATTEMPT, PT TOLERATED WELL. SCHEDULED MEDICATIONS GIVEN ORDERED.
--- NOTE | 2022-06-30 23:30 | NUR ---
ROUNDING DONE. PATIENT IS ASLEEP. BREATHING EVEN AND UNLABORED.
[2022-07-01 04:00] VITALS: BP 106/78; PULSE 78; RESP 18; TEMP 97.6; O2SAT 99
[2022-07-01] MEDS: MEROPENEM 1,000 MG in NACL 0.9% 50 ML IV SCH ×2 (04:34→12:47)
--- NOTE | 2022-07-01 05:00 | NUR ---
AM CARE RENDERED. MADE COMFORTABLE IN BED.
--- NOTE | 2022-07-01 06:47 | NUR ---
PATIENT IS ASLEEP. ALL NEEDS ATTENDED TO. NO DISTRESS NOTED. SAFETY PRECAUTIONS MAINTAINED DURING THE SHIFT, CALL LIGHT REMAINS WITHIN REACH.
--- NOTE | 2022-07-01 07:05 | NUR ---
RECEIVED REPORT FROM CONCIERGE RECEPTIONIST NURSE FOR CONTINUITY OF CARE. PT STABLE AT THIS TIME AND RESTING IN BED.
[2022-07-01 08:00] VITALS: PULSE 72; RESP 18; TEMP 98; O2SAT 100
[2022-07-01] MEDS: GAUZE TP SCH (12:47)
[2022-07-01 16:00] VITALS: BP 92/55; PULSE 79; RESP 18; TEMP 98; O2SAT 100
[2022-07-01] MEDS ORDERED: Gauze TP (16:22)
[2022-07-01] MEDS ORDERED: AMOX1TAB15 PO (16:22)
[2022-07-01] MEDS ORDERED: PANT40EC PO (16:23)
--- NOTE | 2022-07-01 16:30 | NUR ---
REMOVED GUILLERMO. NO PAIN OR BLOOD WHEN REMOVING. 300CC IN BAG AT TIME OF DISPOSAL. CATHETER IS INTACT.
--- NOTE | 2022-07-01 16:44 | NUR ---
CM CALLED AND ASKED IF I COULD UPDATE NUMBER FOR [facility]. THE NUMBER IS [phone] IS THE CORRECT NUMBER. NUMBER IN OTHER NOTE IS FOR FAX
[2022-07-01 16:51] VITALS: BP 92/55; PULSE 79; RESP 18; TEMP 98
== END 2022-07-01 17:44 | disposition home health service (06) | DRG 853 ==
LOC: MED 12:39 → MTU 17:18 → MIC 06-17 11:44 → MTU 06-18 17:30
PROVIDERS: ADMIT Student in an Organized Health Care Education/Training Program; ATTEND Student in an Organized Health Care Education/Training Program
PROC: 0DTN0ZZ Resection of Sigmoid Colon, Open Approach (ICD-10-PCS; 2022-06-17)
PROC: 0DNN0ZZ Release Sigmoid Colon, Open Approach (ICD-10-PCS; 2022-06-17)
PROC: 0W9F0ZZ Drainage of Abdominal Wall, Open Approach (ICD-10-PCS; 2022-06-17)
PROC: 0BH17EZ Insertion of Endotracheal Airway into Trachea, Via Natural or Artificial Opening (ICD-10-PCS; 2022-06-17)
PROC: 30233N1 Transfusion of Nonautologous Red Blood Cells into Peripheral Vein, Percutaneous Approach (ICD-10-PCS; 2022-06-17)
PROC: 5A1935Z Respiratory Ventilation, Less than 24 Consecutive Hours (ICD-10-PCS; principal; 2022-06-17 07:30)
DX: A41.9 Sepsis, unspecified organism (principal); E43 Unspecified severe protein-calorie malnutrition; K65.1 Peritoneal abscess; N17.0 Acute kidney failure with tubular necrosis; K57.20 Diverticulitis of large intestine with perforation and abscess without bleeding; E87.1 Hypo-osmolality and hyponatremia; D62 Acute posthemorrhagic anemia; E78.5 Hyperlipidemia, unspecified; I11.9 Hypertensive heart disease without heart failure; Q90.9 Down syndrome, unspecified; Z68.25 Body mass index [BMI] 25.0-25.9, adult; Z20.822 Contact with and (suspected) exposure to COVID-19; B96.20 Unspecified Escherichia coli [E. coli] as the cause of diseases classified elsewhere; I95.9 Hypotension, unspecified
CPT/HCPCS: 36415; 71045; 75989; 76705; 77012; 80048; 80053; 81001; 81025; 82945; 83605; 83690; 83735; 84157; 84300; 85018; 85025; 85049; 85610; 85730; 86886; 86900; 86901; 86920; 87070; 87075; 87081; 87205; 88307; 89051; 92526; 94002; 96365; 96367; 97112; 97116; 97163-GP; 97530; 99285; J1170; J1644; J2001; J2185; J2250; J2270; J2310; J2543; J2704; J3010; J3370; J3490; J7060; P9016; Q0092; Q9967

== ENCOUNTER 2022-07-21 15:52 | Inpatient (IN) | payer OTHER, MEDICAID ==
[~2022-07-21] VITALS: Ht 144.8 cm; Wt 50.8 kg
[~2022-07-21 15:52] MED LIST: AMOX1TAB15 PO; Gauze TP; PANT40EC PO
[2022-07-21 16:04] VITALS: BP 107/75; PULSE 91; RESP 18; TEMP 98.8; O2SAT 99
--- NOTE | 2022-07-21 16:13 | NUR ---
BIBA FROM HOME FOR PAIN TO ABDOMINAL INCISION SITE AND DRAINAGE X 1 MONTH. SUBJECTIVE FEVER PER FAMILY MEMBER.
[2022-07-21] MEDS ORDERED: KETOROLAC 30 MG/ML VIAL IVP ONE (16:35)
[2022-07-21] MEDS ORDERED: NACL 0.9% 1,000 ML IV SCH (16:35)
[2022-07-21 16:58] LABS: BASOPHILS % (AUTO) 1.2 % (0.0-2.0); EOSINOPHILS % (AUTO) 0.5 % (0.0-4.0); HEMATOCRIT 33.6 % (36-48); HEMOGLOBIN 10.9 g/dL (12.0-16.0); LYMPHOCYTES # (AUTO) 0.8 K/uL (2.5-16.5); LYMPHOCYTES % (AUTO) 20.4 % (20.5-51.1); MEAN CORPUSCULAR HEMOGLOBIN 29 pg (27-31); MEAN CORPUSCULAR HGB CONC 32 g/dL (33-37); MEAN CORPUSCULAR VOLUME 90.5 fL (80-94); MONOCYTES # (AUTO) 0.2 K/uL (0.8-1.0); NEUTROPHILS # (AUTO) 2.9 K/uL (1.8-7.7); NEUTROPHILS % (AUTO) 71.9 % (42.2-75.2); PLATELET COUNT (AUTO) 183 K/uL (140-450); RED BLOOD CELL COUNT(AUTO) 3.72 MIL/uL (4.20-5.40); RED CELL DISTRIBUTION WIDTH 19.5 % (11.6-13.7)
[2022-07-21 17:24] LABS: ALBUMIN 2.3 g/dL (3.4-5.0); ANION GAP 11.4 (8-16); CARBON DIOXIDE 27.5 mmol/L (21-32); CREATININE 1.3 mg/dL (0.6-1.3); POTASSIUM 3.9 mmol/L (3.5-5.1); TOTAL BILIRUBIN 0.3 mg/dL (0.0-1.0)
[2022-07-21 19:45] VITALS: O2SAT 99
--- NOTE | 2022-07-21 19:45 | NUR ---
47 Y/O F from home presents with ABD xmonth with pain at old surgery site. pt stated site is leaking. pt has down syndrome, brother has been bedside. pt has a purewick, awaiting for UA. pt is A&Ox2, skin intact, respirations even and unlabored. pt gait unsteady. NKA
--- NOTE | 2022-07-21 19:46 | NUR ---
assumed care of pt. respirations even and unlabored. 20g L AC became infiltrated while at CT. line was discontinued immediately by day shift RN. new line started 20g R AC.
--- NOTE | 2022-07-21 19:48 | NUR ---
pt taken to CT via soto
[2022-07-21] MEDS ORDERED: PIPERACILLIN/TAZOBACTAM 3.375 GM in DEXTROSE 5% 50 ML IV ONE (20:55)
--- NOTE | 2022-07-21 21:15 | NUR ---
pt awake and alert. respirations evena dn unlabored. awaiting admission. brother has been bedside
[2022-07-21] MEDS ORDERED: SULF-58 PO (21:44)
[2022-07-21] MEDS ORDERED: IBUP-2213 PO (21:44)
[2022-07-21] MEDS ORDERED: PIPERACILLIN/TAZOBACTAM 3.375 GM VIAL IV ONE (22:38)
[2022-07-21] MEDS ORDERED: POTASSIUM CHLORIDE 10 MEQ TABER PO PRN (22:50)
[2022-07-21] MEDS ORDERED: MAG SULF 2000 MG/WATER PREMIX 50 ML IV PRN (22:50)
[2022-07-21] MEDS ORDERED: HYDROcodone/APAP 5/325 MG 1 TAB TAB PO PRN (22:50)
[2022-07-21] MEDS ORDERED: ONDANSETRON 4 MG/2 ML VIAL IVP PRN (22:50)
[2022-07-21] MEDS ORDERED: ACETAMINOPHEN 325 MG TAB PO PRN (22:50)
[2022-07-21] MEDS ORDERED: MORPHINE SULFATE 4 MG/ML SYR IVP PRN (22:50)
[2022-07-21] MEDS ORDERED: KCL 20 MEQ IN 100 mL PREMIX 200 ML IV PRN (22:50)
[2022-07-21] MEDS ORDERED: MAGNESIUM OXIDE 400 MG TAB PO PRN (22:50)
[2022-07-21] MEDS: NACL 0.9% 1,000 ML IV SCH (23:32)
[2022-07-21 23:40] VITALS: O2SAT 100
--- NOTE | 2022-07-22 00:15 | NUR ---
unable to obtain UA due to pt not having to use the restroom
--- NOTE | 2022-07-22 00:47 | NUR ---
Patient will be admitted to care of [facility]. Admited to Tele. Will go to [id number]. Belongings list completed. Report to Miguel SALEH.
--- NOTE | 2022-07-22 00:55 | NUR ---
RECEIVED REPORT FROM ER NURSE FOR CONTINUITY OF CARE. PATIENT ARRIVED TO [facility] DEPARTMENT BY NURIA. DIANARUTH AT BEDSIDE TO HELP TRANSLATE. PATIENT IS ALERT AND ORIENTED X3. CURRENTLY ON ROOM AIR WITH NO APPARENT SIGNS OF ACUTE DISTRESS NOTED. PATIENT STATES NO PAIN AT THIS TIME. PATIENT ABLE TO AMBULATE WITH ASSISTANCE BUT IS ON BED REST WITH DIAPER AND PUREWICK. VITAL SIGNS TAKEN, ALL WNL. IV SITE LOCATED AT RIGHT AC 20 GAUGE, RUNNING NORMAL SALINE @ 80ML/HR. PATIENT HAS SURGICAL SITE TO ABDOMEN W/ STAPES, 31 WERE COUNTED. ORIENTED CLIENT TO CALL LIGHT CONTROLS AND PLACED WITHIN REACH. SAFETY MEASURES IN PLACE. WILL MAKE FREQUENT ROUNDS
[2022-07-22 04:00] VITALS: BP 103/67; PULSE 77; RESP 14; TEMP 97.8; O2SAT 95
[2022-07-22 04:01] VITALS: PULSE 64
[2022-07-22 05:33] LABS: BASOPHILS % (AUTO) 0.7 % (0.0-2.0); EOSINOPHILS % (AUTO) 0.9 % (0.0-4.0); HEMATOCRIT 29.2 % (36-48); HEMOGLOBIN 9.5 g/dL (12.0-16.0); LYMPHOCYTES # (AUTO) 0.5 K/uL (2.5-16.5); LYMPHOCYTES % (AUTO) 14.9 % (20.5-51.1); MEAN CORPUSCULAR HEMOGLOBIN 30 pg (27-31); MEAN CORPUSCULAR HGB CONC 33 g/dL (33-37); MEAN CORPUSCULAR VOLUME 91.2 fL (80-94); MONOCYTES # (AUTO) 0.2 K/uL (0.8-1.0); MONOCYTES % (AUTO) 5.8 % (1.7-9.3); NEUTROPHILS # (AUTO) 2.7 K/uL (1.8-7.7); NEUTROPHILS % (AUTO) 77.7 % (42.2-75.2); PLATELET COUNT (AUTO) 146 K/uL (140-450); RED CELL DISTRIBUTION WIDTH 19.2 % (11.6-13.7); WHITE BLOOD COUNT (AUTO) 3.5 K/uL (4.8-10.8)
[2022-07-22] MEDS ORDERED: PIPERACILLIN/TAZOBACTAM 3.375 GM in DEXTROSE 5% 50 ML IV SCH (06:00)
--- NOTE | 2022-07-22 06:00 | NUR ---
PT RESTING COMFORTABLY. VOIDED ONCE AND HAD ONE BM DURING SHIFT. CLEANED AND CHANGED THE PATIENT. SURGICAL WOUND NOTED TO HAVE A SMALL AMOUNT OF DRAINAGE PRESENT. APPLIED DRESSING TO SURGICAL WOUND, LOWERED BED TO LOWEST POINT, PLACED CALL LIGHT BACK WITHIN REACH. WILL ENDORSE TO DAY SHIFT NURSE IN STABLE CONDITION.
[2022-07-22 06:22] LABS: ALBUMIN 1.9 g/dL (3.4-5.0); ANION GAP 12.3 (8-16); CARBON DIOXIDE 23.7 mmol/L (21-32); CREATININE 1.1 mg/dL (0.6-1.3); TOTAL BILIRUBIN 0.2 mg/dL (0.0-1.0)
[2022-07-22 08:00] VITALS: BP 95/56; PULSE 76; PULSE 78; RESP 18; TEMP 97.1; O2SAT 96
--- NOTE | 2022-07-22 08:11 | NUR ---
GOT REPORT FROM THE NIGHT NURSE, PT IS SLEEPING NO SOB.[id number]
--- NOTE | 2022-07-22 08:40 | NUR ---
DC [age] YRS OLD FEMALE PATIENT WAS ADMITTED FROM HOME WITH A DX OF ABDOMINAL WALL ABSCESS, SEPSIS. PATIENT WAS DISCHARGED RECENTLY. PT HAS A HX OF DOWN SYNDROME, HTN, AND HLD. CT ABD/PELVIS AND US ABD SHOWED CONCERNING FOR ANTERIOR WALL ABSCESS AND 3CM MASS OR COMPLEX COLLECTION INTHE RIGHT LOWER ABDOMEN. ADMINISTERED IVF, IV ABX ZOSYN AND CONTINUED HOME MEDS. CONSULTED WITH ID, SURGEON AND WOUND CARE. DC PLAN TO GO HOME WITH HOME HEALTH WHEN STABLE. CM TO FOLLOW Addendum: 07/27/22 at 1712 by ANN MARIE RODRIGUEZ CM RECEIVED ORDER FOR PATIENT TO GO TO SNF FOR PT AND IV ABX. FAXED ALL PAPERWORK TO [facility] AND THE FOLLOWING FACILITIES: [facility], [facility], [facility], [place] GOT A CALL FROM PADMINI AT [facility] WHO IS ACCEPTING PATIENT. [facility] LOCATED AT [address] [address]. PATIENT WILL BE GOING TO ROOM 9A UNDER DR PANTOJA. TRANSPORTATION WAS ARRANGED WITH INSURANCE WITH CALL [facility] WITH A ETA THAT WILL BE GIVEN TO THE NURSING STATION VIA PHONE CALL. CHARGE NURSE DUC AND SON AWARE OF THE ABOVE INFORMATION. SNF AUTH WAS FAXED TO [facility].
--- NOTE | 2022-07-22 08:49 | NUR ---
PATIENT HAS BEEN SCREENED AND CATEGORIZED HIGH NUTRITION RISK. PATIENT WILL BE SEEN WITHIN 1-2 DAYS OF ADMISSION. 07/22/22-07/23/[address]
[2022-07-22] MEDS: NACL 0.9% 1,000 ML IV SCH ×2 (11:52→23:25)
[2022-07-22 12:00] VITALS: BP 95/56; PULSE 76; RESP 18; TEMP 97.1; O2SAT 96
[2022-07-22] MEDS: MEROPENEM 1,000 MG in NACL 0.9% 50 ML IV SCH ×2 (12:19→20:09)
--- NOTE | 2022-07-22 14:33 | NUR ---
07/22/22 RD INITIAL ASSESSMENT COMPLETED PLEASE REFER TO NUTRITION ASSESSMENT UNDER CARE ACTIVITY FOR ESTIMATED NUTRITIONAL NEEDS. 1.CONTINUE NPO DIET TOLERATED AND ADVANCE TO CLEAR LIQUID DIET ONCE MEDICALLY APPROPRIATE. 2.RD WILL MONITOR PO INTAKE TO SEE IF SUPPLEMENTS ARE NEEDED AND WILL MONITOR WEIGHT, SKIN INTEGRITY, GI SYMPTOMS AND RELATED LABS. 3. RD TO FOLLOW-UP 3-5 DAYS, MODERATE RISK LAKESHA WATERS RD
[2022-07-22 16:00] VITALS: BP 97/60; PULSE 70; RESP 18; TEMP 97.1; O2SAT 97
--- NOTE | 2022-07-22 16:25 | NUR ---
WOUND CARE NOTE: WOUND ASSESSMENT DONE TO ABDOMINAL SURGICAL WOUND THIS MORNING. MID ABDOMINAL SURGICAL WOUND 3X0.5X1CM WOUND BED THIN LAYER OF SLOUGH TISSUE, SMALL AMOUNT OF PURULENT DRAINAGE ABHI WOUND SKIN DRY,INTACT. PT. WITH LOW HOA SCALE AT MODERATE TO HIGH RISK, CONTINUE TO FOLLOW PRESSURE INJURY PREVENTION INTERVENTIONS. POC DISCUSSED WITH DENISE QUIROZ. PER DOCTOR, RYAN REMOVE PIPPA. RECOMMENDATIONS -CLEANSE ABDOMINAL WOUND WITH WOUND CARE SOLUTION, PAT DRY, APPLY HYDROGUARD WITH OIL EMULSION DRESSING TO WOUND BED AND COVER WITH DRY DRESSING QD AND PRN IF SOILING -POSITIONING: TURN AND REPOSITION PATIENT Q 2H OR SOONER USE PILLOWS TO KEEP BONY PROMINENCES FROM DIRECT CONTACT WITH SURFACES USE REPOSITIONING WEDGES TO PROVIDE 30-DEGREE ANGLE FOR SIDE LYING POSITIONS OFFLOADING OR FOAM DRESSING TO ALL TUBING TO PREVENT MEDICAL DEVICES RELATED PRESSURE INJURY -RE-EVALUATING AND MANAGING INCONTINENCE MONITOR SKIN CONDITION DURING POSITION CHANGE DO NOT MASSAGE REDNESS, BONY PROMINENCES FREQUENT ABHI-CARE AND PROVIDE BARRIER CREAMS PRN IF SOILING MOISTURE CONTROL BY ABSORBENT PAD TO WICK AND HOLD MOISTURE KEEP SKIN DRY AND PROTECT FROM FRICTION -MANAGE FRICTION/SHEAR/MOBILITY KEEP HOB AT THE LOWEST LEVEL OF ELEVATION NO MORE THAN 30 DEGREE UNLESS OTHERWISE CONTRAINDICATED USE LIFT SHEET OR TRANSFER DEVICE TO MOVE PATIENT AND PREVENT LATERAL SHEER. PROTECT HEELS, ELBOWS BONY PROMINENCES WITH SKIN BERRIES OR FOAM DRESSING IF EXPOSED TO FRICTION OFFLOAD BILATERAL HEELS BY PLACING PILLOWS UNDER CALVES AT ALL TIMES, UNLESS OTHERWISE CONTRAINDICATED -PRESSURE REDISTRIBUTION SURFACE THERAPY ESTEPHANIA ISOFLEX MATTRESS -NUTRITION: PLEASE FOLLOW RD RECOMMENDATIONS AND OFFER NUTRITION SUPPLEMENTS IF ORDERED.
[2022-07-22] MEDS ORDERED: SKINTEGRITY HYDROGEL TP PRN (16:50)
--- NOTE | 2022-07-22 18:38 | NUR ---
TELEPHONE CONSENT SIGNED PT WILL BE NPO AFTER MIDNIGHT.[id number]
[2022-07-22 20:00] VITALS: BP 98/58; PULSE 70; RESP 18; TEMP 97.6; O2SAT 97
[2022-07-23 04:00] VITALS: BP 132/96; PULSE 70; RESP 20; TEMP 97.1; O2SAT 100
[2022-07-23] MEDS: MEROPENEM 1,000 MG in NACL 0.9% 50 ML IV SCH ×3 (04:13→20:19)
[2022-07-23 05:30] LABS: BASOPHILS % (AUTO) 1.2 % (0.0-2.0); EOSINOPHILS # (AUTO) 0.1 K/uL (0-0.4); EOSINOPHILS % (AUTO) 1.7 % (0.0-4.0); HEMATOCRIT 31.8 % (36-48); HEMOGLOBIN 10.4 g/dL (12.0-16.0); LYMPHOCYTES # (AUTO) 0.7 K/uL (2.5-16.5); LYMPHOCYTES % (AUTO) 21.1 % (20.5-51.1); MEAN CORPUSCULAR HEMOGLOBIN 30 pg (27-31); MEAN CORPUSCULAR HGB CONC 33 g/dL (33-37); MEAN CORPUSCULAR VOLUME 92.7 fL (80-94); MONOCYTES # (AUTO) 0.2 K/uL (0.8-1.0); MONOCYTES % (AUTO) 6.2 % (1.7-9.3); NEUTROPHILS # (AUTO) 2.2 K/uL (1.8-7.7); NEUTROPHILS % (AUTO) 69.8 % (42.2-75.2); PLATELET COUNT (AUTO) 144 K/uL (140-450); RED BLOOD CELL COUNT(AUTO) 3.43 MIL/uL (4.20-5.40); RED CELL DISTRIBUTION WIDTH 19.9 % (11.6-13.7); WHITE BLOOD COUNT (AUTO) 3.2 K/uL (4.8-10.8)
[2022-07-23 05:39] LABS: PROTHROMBIN TIME 13.1 secs (10.8-13.4)
[2022-07-23 06:21] LABS: ALBUMIN 1.9 g/dL (3.4-5.0); ANION GAP 13.4 (8-16); CARBON DIOXIDE 22.8 mmol/L (21-32); CREATININE 1.2 mg/dL (0.6-1.3); POTASSIUM 4.2 mmol/L (3.5-5.1); TOTAL BILIRUBIN 0.2 mg/dL (0.0-1.0)
--- NOTE | 2022-07-23 07:30 | NUR ---
RECEIVED PATIENT FROM PM NURSE FOR CONTINUATION OF CARE. PATIENT SEEN ASLEEP ON BED WITH NORMAL RISE AND FALL OF CHEST. PATIENT CARE PLAN REVIEWED. PATIENT CARE RESUMED.
[2022-07-23 08:00] VITALS: BP 65/96; PULSE 70; RESP 18; TEMP 97.1; O2SAT 100
--- NOTE | 2022-07-23 08:30 | NUR ---
PATIENT TRANSPORTED TO OR FOR DEBRIDEMENT. PATIENT VITALS STABLE
[2022-07-23] MEDS ORDERED: BUPIVACAINE-MPF/EPI 0.25% 30 ML VIAL INJ ONE (08:53)
[2022-07-23] MEDS ORDERED: HYDROmorphone 1 MG/ML AMP IVP PRN (09:10)
[2022-07-23] MEDS ORDERED: HYDROcodone/APAP 5/325 MG 1 TAB TAB PO PRN (09:10)
[2022-07-23] MEDS ORDERED: fentaNYL citrate 0.05 MG/ML VIAL ONE (09:12)
[2022-07-23] MEDS ORDERED: PROPOFOL 200 MG/20 ML VIAL IV ONE (09:28)
[2022-07-23 12:00] VITALS: BP 97/65; PULSE 70; RESP 18; TEMP 99.1; O2SAT 100
[2022-07-23] MEDS: NACL 0.9% 1,000 ML IV SCH (12:20)
[2022-07-23] MEDS: SKINTEGRITY HYDROGEL TP SCH (13:00)
[2022-07-23 16:00] VITALS: BP 112/74; PULSE 67; RESP 18; TEMP 96.6; O2SAT 100
--- NOTE | 2022-07-23 19:20 | NUR ---
PATIENT ENDORSED TO PM NURSE FRO CONTINUATION OF CARE.
[2022-07-23 20:00] VITALS: BP 115/58; PULSE 77; RESP 15; TEMP 98.2; O2SAT 100
[2022-07-24] MEDS: NACL 0.9% 1,000 ML IV SCH ×2 (00:50→13:20)
[2022-07-24 04:00] VITALS: BP 94/59; PULSE 70; RESP 15; TEMP 98.3; O2SAT 98
[2022-07-24] MEDS: MEROPENEM 1,000 MG in NACL 0.9% 50 ML IV SCH ×3 (05:36→20:56)
[2022-07-24 05:44] LABS: BASOPHILS % (AUTO) 0.8 % (0.0-2.0); EOSINOPHILS # (AUTO) 0.1 K/uL (0-0.4); EOSINOPHILS % (AUTO) 1.5 % (0.0-4.0); HEMOGLOBIN 9.5 g/dL (12.0-16.0); LYMPHOCYTES % (AUTO) 28.1 % (20.5-51.1); MEAN CORPUSCULAR HEMOGLOBIN 30 pg (27-31); MEAN CORPUSCULAR HGB CONC 33 g/dL (33-37); MEAN CORPUSCULAR VOLUME 92.1 fL (80-94); MONOCYTES # (AUTO) 0.3 K/uL (0.8-1.0); MONOCYTES % (AUTO) 8.5 % (1.7-9.3); NEUTROPHILS # (AUTO) 2.2 K/uL (1.8-7.7); NEUTROPHILS % (AUTO) 61.1 % (42.2-75.2); PLATELET COUNT (AUTO) 140 K/uL (140-450); RED BLOOD CELL COUNT(AUTO) 3.16 MIL/uL (4.20-5.40); RED CELL DISTRIBUTION WIDTH 19.6 % (11.6-13.7); WHITE BLOOD COUNT (AUTO) 3.6 K/uL (4.8-10.8)
[2022-07-24 06:14] LABS: ALBUMIN 1.8 g/dL (3.4-5.0); CARBON DIOXIDE 22.1 mmol/L (21-32); CREATININE 0.9 mg/dL (0.6-1.3); MAGNESIUM 1.9 mg/dL (1.8-2.4); POTASSIUM 4.1 mmol/L (3.5-5.1); TOTAL BILIRUBIN 0.3 mg/dL (0.0-1.0)
[2022-07-24 08:00] VITALS: BP 101/69; PULSE 75; RESP 18; TEMP 97.2; O2SAT 100
[2022-07-24] MEDS: SKINTEGRITY HYDROGEL TP SCH (09:27)
--- NOTE | 2022-07-24 14:06 | NUR ---
WOUND CARE NOTE: WOUND ASSESSMENT DONE WITH PRIMARY RN NEENA TO MID ABDOMEN S/P DEBRIDEMENT SURGICAL WOUND [id number] WOUND BED 100% RED GRANULATION TISSUE, MODERATE AMOUNT SEROSANGUINEOUS DRAINAGE, NO ODOR, WOUND EDGE FLAT ATTACHED, ABHI-WOUND SKIN OLD SCAR TISSUE DRY AND CLEAN. INFORMED DR. CAMACHO AND TO CLARIFY IF NO FISTULA, RECOMMEND WOUND VAC. PENDING RESPONSE. POC DISCUSSED WITH PRIMARY RN NEENA AND CHARGE NURSE DUC FOR FOLLOW UP WITH SURGEON. RECOMMENDATIONS: -ABDOMINAL WOUND CLEANSE WITH NS, PAT DRY, APPLY HYDROGEL TO WOUND BED AND PACK WITH ONE-PIECE KERLIX ROLL, THEN COVER WITH AND DRESSING SECURED WITH TAPE QD AND PRN IF SOILING. -APPLY ABDOMINAL BINDER Addendum: 07/27/22 at 1134 by Dior Garza RN (Grace) PER DR. CAMACHO ABDOMINAL WOUND NO WOUND VAC. POC DISCUSSED WITH ASSOCIATE PROFESSOR OF MATHEMATICS AFIA THAT PT. WILL BE DC TO SNF TO CONTINUE WOUND CARE.
[2022-07-24 16:00] VITALS: BP 112/71; PULSE 79; RESP 18; TEMP 97; O2SAT 98
[2022-07-24 20:00] VITALS: BP 95/59; PULSE 72; RESP 17; TEMP 97.7; O2SAT 98
--- NOTE | 2022-07-24 20:56 | NUR ---
MERREM ADMINISTERED ORDERED. PATIENT AWAKE NON VERBAL. FLACC 0. NO DISTRESS NOTED. IVF NS INFUSING ORDERED. SAFETY PRECAUTIONS ARE IN PLACE. CALL LIGHT WITHIN REACH.
[2022-07-25] MEDS: NACL 0.9% 1,000 ML IV SCH ×2 (01:50→14:52)
[2022-07-25 04:00] VITALS: BP 101/62; PULSE 64; RESP 17; TEMP 97; O2SAT 99
[2022-07-25] MEDS: MEROPENEM 1,000 MG in NACL 0.9% 50 ML IV SCH ×3 (05:25→21:27)
[2022-07-25 05:44] LABS: HEMATOCRIT 23.5 % (36-48); HEMOGLOBIN 7.4 g/dL (12.0-16.0); MEAN CORPUSCULAR HEMOGLOBIN 29 pg (27-31); MEAN CORPUSCULAR HGB CONC 31 g/dL (33-37); PLATELET COUNT (AUTO) 102 K/uL (140-450); RED BLOOD CELL COUNT(AUTO) 2.53 MIL/uL (4.20-5.40); RED CELL DISTRIBUTION WIDTH 19.6 % (11.6-13.7); WHITE BLOOD COUNT (AUTO) 2.4 K/uL (4.8-10.8)
[2022-07-25 06:18] LABS: ALBUMIN 1.1 g/dL (3.4-5.0); ANION GAP 10.3 (8-16); BASOPHILS % (MANUAL) 0 % (0-2); CARBON DIOXIDE 19.4 mmol/L (21-32); CREATININE 0.5 mg/dL (0.6-1.3); EOSINOPHILS % (MANUAL) 2 % (0-4); LYMPHOCYTES % (MANUAL) 31 % (20-46); MAGNESIUM 1.2 mg/dL (1.8-2.4); MONOCYTES % (MANUAL) 4 % (5-12); TOTAL BILIRUBIN 0.1 mg/dL (0.0-1.0)
[2022-07-25 06:30] LABS: POTASSIUM 2.7 mmol/L (3.5-5.1)
--- NOTE | 2022-07-25 06:30 | NUR ---
RECEIVED A CALL FROM [facility] REPORTING CRITICAL LAB VALUE POTASSIUM 2.7, CALCIUM 5.5. K RIDER ADMINISTERED ORDERED.
[2022-07-25 08:00] VITALS: BP 90/65; PULSE 60; PULSE 68; RESP 18; RESP 19; TEMP 97.2; O2SAT 100; O2SAT 98
--- NOTE | 2022-07-25 08:00 | NUR ---
Patient's Plan of Care was discussed and reviewed with IT TRAINING SPECIALIST: Danni
[2022-07-25] MEDS ORDERED: POTASSIUM CHLORIDE 10 MEQ TABER PO ONE (11:05)
[2022-07-25] MEDS: SKINTEGRITY HYDROGEL TP SCH (11:24)
[2022-07-25] MEDS ORDERED: POTASSIUM CHLORIDE 40 MEQ in NACL 0.45% 1,000 ML IV SCH (15:55)
[2022-07-25 16:00] VITALS: BP 114/71; PULSE 77; RESP 16; TEMP 97.8; O2SAT 100
[2022-07-25] MEDS ORDERED: POTASSIUM CHLORIDE 20% 40 MEQ/15 ML UDC PO SCH (16:30)
[2022-07-25] MEDS ORDERED: CALCIUM GLUCONATE 10% 2,000 MG in NACL 0.9% 100 ML IV SCH (17:00)
[2022-07-25] MEDS: POTASSIUM CHL 40 MEQ/ D5-1/2NS 1,000 ML IV SCH (17:29)
--- NOTE | 2022-07-25 19:22 | NUR ---
ENDORSED PT TO PETROL TANKER DRIVER NURSE FOR CONTINUITY OF CARE. PT IS STABLE.
--- NOTE | 2022-07-25 19:25 | NUR ---
RECEIVED REPORT FROM DAY SHIFT NURSE FOR CONTINUITY OF CARE. PT IS AWAKE AT THIS TIME, ALERT AND ORIENTED X1, AROUSAL TO NAME ONLY. PT IS ABLE TO FOLLOW INSTRUCTIONS WHEN PROMPTED. CURRENTLY ON ROOM AIR WITH NO APPARENT SIGNS OF ACUTE DISTRESS NOTED. IV SITE LOCATED AT RIGHT WRIST, INTACT AND PATENT. PATIENT HAS ABDOMINAL SURGICAL SITE. DRESSING IS DRY AND INTACT. CALL LIGHT WITHIN REACH, SAFETY MEASURES IN PLACE. WILL MONITOR FREQUENTLY THROUGHOUT SHIFT.
[2022-07-25 20:00] VITALS: BP 113/73; PULSE 70; RESP 16; TEMP 97.8; O2SAT 99
--- NOTE | 2022-07-25 20:00 | NUR ---
Patient's Plan of Care was discussed and reviewed with TAHIR: RAFAEL
--- NOTE | 2022-07-25 21:25 | NUR ---
SCHEDULED MEDICATIONS ADMINISTERED. PT STATED SHE HAD A BOWEL MOVEMENT. CLEANED AND CHANGED THE PATIENT. NO OTHER SIGNS OF DISTRESS NOTED, WILL CONTINUE TO MONITOR.
--- NOTE | 2022-07-26 00:56 | NUR ---
PATIENT MAGNESIUM LEVEL OF 1.2. POC DISCUSSED AND MAG SULF 2000 MG/ STERILE WATER PREMIX 50 ML WAS ADMINISTERED BY RN: NARENDRA.
[2022-07-26] MEDS: MEROPENEM 1,000 MG in NACL 0.9% 50 ML IV SCH ×3 (04:34→22:10)
[2022-07-26] MEDS: POTASSIUM CHL 40 MEQ/ D5-1/2NS 1,000 ML IV SCH ×2 (04:55→14:03)
[2022-07-26 05:07] LABS: BASOPHILS % (AUTO) 0.2 % (0.0-2.0); EOSINOPHILS # (AUTO) 0.1 K/uL (0-0.4); EOSINOPHILS % (AUTO) 1.7 % (0.0-4.0); HEMATOCRIT 29.3 % (36-48); HEMOGLOBIN 9.6 g/dL (12.0-16.0); LYMPHOCYTES # (AUTO) 1.3 K/uL (2.5-16.5); LYMPHOCYTES % (AUTO) 38.6 % (20.5-51.1); MEAN CORPUSCULAR HEMOGLOBIN 30 pg (27-31); MEAN CORPUSCULAR HGB CONC 33 g/dL (33-37); MEAN CORPUSCULAR VOLUME 91.2 fL (80-94); MONOCYTES # (AUTO) 0.2 K/uL (0.8-1.0); MONOCYTES % (AUTO) 6.1 % (1.7-9.3); NEUTROPHILS # (AUTO) 1.8 K/uL (1.8-7.7); NEUTROPHILS % (AUTO) 53.4 % (42.2-75.2); PLATELET COUNT (AUTO) 145 K/uL (140-450); RED BLOOD CELL COUNT(AUTO) 3.21 MIL/uL (4.20-5.40); RED CELL DISTRIBUTION WIDTH 19.6 % (11.6-13.7); WHITE BLOOD COUNT (AUTO) 3.4 K/uL (4.8-10.8)
[2022-07-26 05:26] LABS: ALBUMIN 1.7 g/dL (3.4-5.0); ANION GAP 8.6 (8-16); CARBON DIOXIDE 26.1 mmol/L (21-32); CREATININE 0.7 mg/dL (0.6-1.3); MAGNESIUM 2.4 mg/dL (1.8-2.4); POTASSIUM 4.7 mmol/L (3.5-5.1); TOTAL BILIRUBIN 0.2 mg/dL (0.0-1.0)
--- NOTE | 2022-07-26 07:25 | NUR ---
RECEIVED PT FROM ABSTRACT CHECKER NURSE FOR CONTINUITY OF CARE. PT IN BED, AAOX1. RESPIRATIONS EVEN AND UNLABORED ON RA. SKIN DRY AND WARM TO TOUCH. IV ON L WRIST INFUSING IVF @ 80CC/HR. FLACC-0. NO DISTRESS NOTED. PT CLOSE TO NURSING STATION. ALL SAFETY PRECAUTIONS IN PLACE.
[2022-07-26 08:00] VITALS: BP 113/57; PULSE 62; PULSE 75; RESP 18; RESP 19; TEMP 98.2; O2SAT 100; O2SAT 99
--- NOTE | 2022-07-26 08:00 | NUR ---
Patient's Plan of Care was discussed and reviewed with BRANCHER: Danni
[2022-07-26] MEDS: SKINTEGRITY HYDROGEL TP SCH (13:00)
[2022-07-26] MEDS: NACL 0.9% 1,000 ML IV SCH (15:50)
[2022-07-26 16:00] VITALS: BP 117/68; PULSE 70; RESP 16; TEMP 97.4; O2SAT 100
--- NOTE | 2022-07-26 18:17 | NUR ---
07/26/22 RD FOLLOW UP COMPLETED.PLEASE REFER TO NUTRITION ASSESSMENT UNDER CARE ACTIVITY FOR ESTIMATED NUTRITIONAL NEEDS. 1.CONTINUE REGULAR DIET PT TOLERATES 2.MONITOR PO INTAKE 3. RD TO FOLLOW-UP IN 3-5 DAYS PATIENT IS MODERATE RISK. [facility]ARK[facility] CHAPIN, RD
--- NOTE | 2022-07-26 19:15 | NUR ---
ENDORSED PT TO DIRECTOR BUSINESS NURSE FOR CONTINUITY OF CARE. PT IS STABLE.
--- NOTE | 2022-07-26 19:34 | NUR ---
RECEIVED BEDSIDE REPORT FROM DAY SHIFT NURSE FOR CONTINUITY OF CARE. PATIENT AWAKE, ALERT AND AROUSABLE TO NAME ONLY. IV FLUID SWITCHED TO NS, RUNNING @ 75 ML/HR. PT STILL EATING POORLY. TALKED TO BROTHER AT BEDSIDE WHO INSTRUCTED TO GIVE HER APPLE SAUCE THROUGHOUT THE NIGHT. FLUSHED IV TO ENSURE PATENCY. PATIENT STATES PAIN IN HER ABDOMEN NEAR SURGICAL WOUND ONLY WHEN SHE REPOSITIONS. WOUND DRESSING DRY AND INTACT, WILL PLAN TO CHANGE IF SOILED. CALL LIGHT PLACED WITHIN REACH, SAFETY MEASURES IN PLACE.
[2022-07-26 20:00] VITALS: PULSE 70; RESP 18; O2SAT 95
--- NOTE | 2022-07-26 21:12 | NUR ---
DURING ROUNDS PATIENT STATED SHE HAD A BOWEL MOVEMENT. CLEANED AND CHANGED THE PATIENT. DRESSING STILL DRY AND INTACT. PATIENT STATES NO PAIN AT THIS TIME. WILL CONTINUE TO MONITOR.
[2022-07-27] VITALS: BP 121/79; PULSE 70; RESP 18; TEMP 97.5; O2SAT 95
[2022-07-27] MEDS: NACL 0.9% 1,000 ML IV SCH ×2 (05:27→18:30)
--- NOTE | 2022-07-27 05:30 | NUR ---
CLEANED AND CHANGED THE PATIENT. PATIENT HAD TWO BOWEL MOVEMENTS AND VOIDED ONCE THIS SHIFT. PERFORMED WOUND CARE AND CHANGED DRESSING. PATIENT IN VISIBLE PAIN. AFTER TAKING VITAL SIGNS PATIENTS BLOOD PRESSURE WAS TOO LOW TO ADMINISTER PAIN MEDICATION. REPOSITIONED THE PATIENT AND PROVIDED FURTHER COMFORT MEASURES.
[2022-07-27 05:37] LABS: ANION GAP 8.8 (8-16); CARBON DIOXIDE 27.7 mmol/L (21-32); CREATININE 0.8 mg/dL (0.6-1.3); POTASSIUM 4.5 mmol/L (3.5-5.1)
[2022-07-27] MEDS: MEROPENEM 1,000 MG in NACL 0.9% 50 ML IV SCH ×3 (05:45→21:25)
[2022-07-27 08:00] VITALS: BP 116/75; PULSE 70; PULSE 77; RESP 18; TEMP 98; O2SAT 95
[2022-07-27 09:09] LABS: BASOPHILS % (AUTO) 0.7 % (0.0-2.0); EOSINOPHILS # (AUTO) 0.1 K/uL (0-0.4); EOSINOPHILS % (AUTO) 3.3 % (0.0-4.0); HEMATOCRIT 31.3 % (36-48); HEMOGLOBIN 10.3 g/dL (12.0-16.0); LYMPHOCYTES # (AUTO) 1.6 K/uL (2.5-16.5); LYMPHOCYTES % (AUTO) 44.3 % (20.5-51.1); MEAN CORPUSCULAR HEMOGLOBIN 30 pg (27-31); MEAN CORPUSCULAR HGB CONC 33 g/dL (33-37); MEAN CORPUSCULAR VOLUME 92.4 fL (80-94); MONOCYTES # (AUTO) 0.2 K/uL (0.8-1.0); MONOCYTES % (AUTO) 5.3 % (1.7-9.3); NEUTROPHILS # (AUTO) 1.7 K/uL (1.8-7.7); NEUTROPHILS % (AUTO) 46.4 % (42.2-75.2); PLATELET COUNT (AUTO) 158 K/uL (140-450); RED BLOOD CELL COUNT(AUTO) 3.39 MIL/uL (4.20-5.40); WHITE BLOOD COUNT (AUTO) 3.6 K/uL (4.8-10.8)
[2022-07-27] MEDS ORDERED: SKINTEGRITY HYDROGEL TP PRN (11:20)
--- NOTE | 2022-07-27 11:25 | NUR ---
RECEIVED PATIENT IN BED AWAKE, NOT FOLLOW COMMEND DUE TO HX OF DOWN SYNDROME. S/P ABD ABSCESS WITH DRESSING INTACT. ON IVF NS AT 75 CC/HR INFUSING AT LEFT WRIST INFUSING , SITE INTACT. WILL CONTINUE TO MONITOR.
[2022-07-27] MEDS ORDERED: SKINTEGRITY HYDROGEL TP SCH (13:00)
--- NOTE | 2022-07-27 14:12 | NUR ---
HD STARTED AND HD NURSE AT BEDSIDE. Addendum: 07/27/22 at 1417 by Agency Nurse THERESE Lewis RN WRONG PATIENT ,
--- NOTE | 2022-07-27 14:18 | NUR ---
DRESSING TO ABDOMEN CHANGED ORDERED WITH [employer] AND COVERED WITH ABD PADS. PATIENT TOLERATED WELL, NO C/O PAIN NOTED.
[2022-07-27] MEDS ORDERED: ERTA1VIA2 IV (15:19)
[2022-07-27 16:00] VITALS: BP 115/74; PULSE 75; RESP 18; TEMP 97.6; O2SAT 95
[2022-07-27 20:00] VITALS: BP 114/67; PULSE 75; RESP 16; RESP 18; TEMP 98.1; O2SAT 97
--- NOTE | 2022-07-27 23:34 | NUR ---
GOT A CALL FROM KENNEDY OF [facility], STATED THAT THE CURRENT TRANSPORT ASSIGNED TO [facility] SORTER THE PT DOESN'T HAVE PRIVILEGE FOR [facility], STATED HE WILL RESCHEDULE ANOTHER TRANSPORT FOR TOMORROW 07/28/22 AT 0900, THERESE DONATO MADE AWARE.
--- NOTE | 2022-07-27 23:35 | NUR ---
NOTIFIED BY [facility] THAT PATIENT WILL NOT BE PICKED UP TONIGHT DUE TO TRANSPORTATION ISSUES. PICK TO BE TENTATIVELY SET FOR 07/28 AT 0900
[2022-07-28 04:00] VITALS: BP 127/58; PULSE 74; RESP 16; TEMP 98.1; O2SAT 98
[2022-07-28] MEDS: MEROPENEM 1,000 MG in NACL 0.9% 50 ML IV SCH (05:08)
[2022-07-28] MEDS: NACL 0.9% 1,000 ML IV SCH (06:09)
--- NOTE | 2022-07-28 08:40 | NUR ---
PT PICKED UP BY [facility]. CALLED ROBERTO MALLORY GAVE REPORT TO PHILIPP.
== END 2022-07-28 08:40 | DRG 579 ==
LOC: MED 15:52 → MTU 23:01
PROVIDERS: ADMIT Internal Medicine; ATTEND Internal Medicine
PROC: 0KBK0ZZ Excision of Right Abdomen Muscle, Open Approach (ICD-10-PCS; principal; 2022-07-23 08:30)
DX: L02.211 Cutaneous abscess of abdominal wall (principal); E43 Unspecified severe protein-calorie malnutrition; K65.1 Peritoneal abscess; K63.2 Fistula of intestine; N17.9 Acute kidney failure, unspecified; D64.9 Anemia, unspecified; D72.819 Decreased white blood cell count, unspecified; I10 Essential (primary) hypertension; E78.5 Hyperlipidemia, unspecified; B96.20 Unspecified Escherichia coli [E. coli] as the cause of diseases classified elsewhere; Z20.822 Contact with and (suspected) exposure to COVID-19; E83.51 Hypocalcemia; E87.6 Hypokalemia; Q90.9 Down syndrome, unspecified; Z68.24 Body mass index [BMI] 24.0-24.9, adult; Z79.1 Long term (current) use of non-steroidal anti-inflammatories (NSAID); Z79.899 Other long term (current) drug therapy
CPT/HCPCS: 36415; 76705; 80048; 80053; 83690; 83735; 84703; 85025; 85610; 85730; 87040; 87070; 87075; 87081; 87205; 96361; 96365; 96375; 99285; A6248; J0610; J1885; J2185; J2543; J2704; J3010; J3475; J3480; J3490; J7060; J7120; Q0092; Q9967

== ENCOUNTER 2022-09-10 17:49 | Emergency (ER) | payer OTHER, MEDICAID ==
[~2022-09-10] VITALS: Ht 144.8 cm; Wt 45.4 kg
[~2022-09-10 17:49] MED LIST changes: -AMOX1TAB15 PO; +ERTA1VIA2 IV; -Gauze TP
[2022-09-10 18:03] VITALS: BP 102/60; PULSE 76; RESP 14; TEMP 97.8; O2SAT 99
--- NOTE | 2022-09-10 18:24 | NUR ---
Pt bib family for wound check after gastric sx. Pt has some liquid discharge at wound site on abdomen. Pt had wound bandaged. MD has seen pt. Pt at baseline mentation. Vss, no ss of acute distress, breathing equal and unlabored, speech clear, family at bedside.
[2022-09-10] MEDS ORDERED: cephALEXin 500 MG CAP PO ONE (18:25)
[2022-09-10] MEDS ORDERED: CEPH-588 PO (18:28)
[2022-09-10 18:42] LABS: BASOPHILS % (AUTO) 1.2 % (0.0-2.0); EOSINOPHILS % (AUTO) 1.3 % (0.0-4.0); HEMOGLOBIN 10.1 g/dL (12.0-16.0); LYMPHOCYTES # (AUTO) 1.3 K/uL (2.5-16.5); LYMPHOCYTES % (AUTO) 35.8 % (20.5-51.1); MEAN CORPUSCULAR HEMOGLOBIN 32 pg (27-31); MEAN CORPUSCULAR HGB CONC 34 g/dL (33-37); MONOCYTES # (AUTO) 0.3 K/uL (0.8-1.0); MONOCYTES % (AUTO) 6.9 % (1.7-9.3); NEUTROPHILS % (AUTO) 54.8 % (42.2-75.2); PLATELET COUNT (AUTO) 170 K/uL (140-450); RED BLOOD CELL COUNT(AUTO) 3.16 MIL/uL (4.20-5.40); WHITE BLOOD COUNT (AUTO) 3.7 K/uL (4.8-10.8)
[2022-09-10 18:57] LABS: ALBUMIN 2.2 g/dL (3.4-5.0); ANION GAP 12.1 (8-16); CARBON DIOXIDE 26.5 mmol/L (21-32); CREATININE 1.1 mg/dL (0.6-1.3); POTASSIUM 3.6 mmol/L (3.5-5.1); TOTAL BILIRUBIN 0.1 mg/dL (0.0-1.0)
[2022-09-10 19:52] VITALS: BP 104/74; PULSE 76; RESP 14; TEMP 97.8; O2SAT 99
--- NOTE | 2022-09-10 19:53 | NUR ---
Patient discharged with v/s stable. Written and verbal after care instructions given and explained. New rx keflex. Patient verbalized understanding. Ambulatory with steady gait. All questions addressed prior to discharge. Advised to follow up with PMD.
== END 2022-09-10 19:53 | disposition home or self-care (01) ==
LOC: MED 17:49
DX: L25.8 Unspecified contact dermatitis due to other agents (principal); D53.9 Nutritional anemia, unspecified; D72.819 Decreased white blood cell count, unspecified; Z79.899 Other long term (current) drug therapy; Z98.890 Other specified postprocedural states
CPT/HCPCS: 36415; 80053; 83605; 85025; 87040; 99283

== ENCOUNTER 2022-11-15 17:00 | Inpatient (IN) | payer OTHER, MEDICAID ==
[~2022-11-15] VITALS: Ht 140 cm; Wt 49.9 kg
[~2022-11-15 17:00] MED LIST changes: +CEPH-588 PO
[2022-11-15 17:47] VITALS: BP 113/74; PULSE 68; RESP 18; TEMP 98.2; O2SAT 100
[2022-11-15 18:40] LABS: BASOPHILS % (AUTO) 0.9 % (0.0-2.0); EOSINOPHILS # (AUTO) 0.1 K/uL (0-0.4); EOSINOPHILS % (AUTO) 1.3 % (0.0-4.0); HEMATOCRIT 35.9 % (36-48); HEMOGLOBIN 11.9 g/dL (12.0-16.0); LYMPHOCYTES # (AUTO) 1.7 K/uL (2.5-16.5); LYMPHOCYTES % (AUTO) 32.3 % (20.5-51.1); MEAN CORPUSCULAR HEMOGLOBIN 33 pg (27-31); MEAN CORPUSCULAR HGB CONC 33 g/dL (33-37); MEAN CORPUSCULAR VOLUME 98.7 fL (80-94); MONOCYTES # (AUTO) 0.4 K/uL (0.8-1.0); NEUTROPHILS % (AUTO) 57.5 % (42.2-75.2); PLATELET COUNT (AUTO) 208 K/uL (140-450); RED BLOOD CELL COUNT(AUTO) 3.64 MIL/uL (4.20-5.40); RED CELL DISTRIBUTION WIDTH 15.5 % (11.6-13.7); WHITE BLOOD COUNT (AUTO) 5.2 K/uL (4.8-10.8)
[2022-11-15 18:50] LABS: ALBUMIN 2.6 g/dL (3.4-5.0); CALCIUM 8.7 mg/dL (8.5-10.1); CARBON DIOXIDE 29.4 mmol/L (21-32); CREATININE 1.1 mg/dL (0.6-1.3); POTASSIUM 4.4 mmol/L (3.5-5.1); TOTAL PROTEIN, SERUM 7.5 g/dL (6.4-8.2)
[2022-11-15 18:54] LABS: TOTAL BILIRUBIN 0.1 mg/dL (0.0-1.0)
[2022-11-15 20:18] LABS: APPEARANCE,URINE CLEAR (CLEAR); BILIRUBIN,URINE NEGATIVE (NEGATIVE); BLOOD, URINE NEGATIVE (NEGATIVE); COLOR,URINE YELLOW (YELLOW); LEUKOCYTE ESTERASE ,URINE TRACE (NEGATIVE); NITRITE, URINE NEGATIVE (NEGATIVE); PROTEIN,URINE NEGATIVE (NEGATIVE); UGLUCOSE NEGATIVE (NEGATIVE); UROBILINOGEN,URINE 0.2 EU/dL (0.2 - 1)
[2022-11-15 20:23] LABS: BACTERIA,URINE FEW /HPF (None Seen); MUCUS,URINE 1+ /LPF (None Seen); RBC,URINE 0-5 /HPF (0-5); SQUAMOUS EPITHELIAL CELL,UR 0-3 (FEW) /LPF (0-3 (FEW)); TRICHOMONAS,URINE None Seen /HPF (None Seen); WBC,URINE 0-5 /HPF (0-5); YEAST,URINE None Seen /HPF (None Seen)
[2022-11-15] MEDS ORDERED: PIPERACILLIN/TAZOBACTAM 3.375 GM in DEXTROSE 5% 50 ML IV ONE (23:30)
[2022-11-15] MEDS ORDERED: PIPERACILLIN/TAZOBACTAM 3.375 GM VIAL IV ONE (23:45)
[2022-11-16] MEDS ORDERED: ONDANSETRON 4 MG/2 ML VIAL IM/IVP PRN (03:20)
[2022-11-16] MEDS ORDERED: HYDROcodone/APAP 7.5/325 MG 1 TAB PO PRN (03:20)
[2022-11-16] MEDS ORDERED: guaiFENesin DM 200/20 MG-10 ML 10 ML UDC PO PRN (03:20)
[2022-11-16] MEDS ORDERED: ACETAMINOPHEN 325 MG TAB PO PRN (03:20)
[2022-11-16] MEDS ORDERED: ZOLPIDEM 5 MG TAB PO PRN (03:20)
[2022-11-16] MEDS ORDERED: DOCUSATE SODIUM 100 MG GELCAP PO PRN (03:20)
[2022-11-16] MEDS ORDERED: POTASSIUM CHLORIDE 10 MEQ TABER PO PRN (03:20)
[2022-11-16] MEDS ORDERED: NACL 0.9% 1,000 ML IV SCH (03:20)
[2022-11-16 04:10] VITALS: BP 112/67; PULSE 64; RESP 18; TEMP 98.7; O2SAT 100
[2022-11-16 06:49] LABS: BASOPHILS % (AUTO) 0.9 % (0.0-2.0); EOSINOPHILS # (AUTO) 0.1 K/uL (0-0.4); EOSINOPHILS % (AUTO) 1.9 % (0.0-4.0); HEMATOCRIT 35.5 % (36-48); HEMOGLOBIN 11.9 g/dL (12.0-16.0); LYMPHOCYTES # (AUTO) 1.5 K/uL (2.5-16.5); LYMPHOCYTES % (AUTO) 36.4 % (20.5-51.1); MEAN CORPUSCULAR HEMOGLOBIN 33 pg (27-31); MEAN CORPUSCULAR HGB CONC 33 g/dL (33-37); MEAN CORPUSCULAR VOLUME 98.1 fL (80-94); MONOCYTES # (AUTO) 0.3 K/uL (0.8-1.0); MONOCYTES % (AUTO) 7.2 % (1.7-9.3); NEUTROPHILS # (AUTO) 2.2 K/uL (1.8-7.7); NEUTROPHILS % (AUTO) 53.6 % (42.2-75.2); PLATELET COUNT (AUTO) 185 K/uL (140-450); RED BLOOD CELL COUNT(AUTO) 3.62 MIL/uL (4.20-5.40); RED CELL DISTRIBUTION WIDTH 15.4 % (11.6-13.7)
[2022-11-16 06:57] LABS: ALBUMIN 2.4 g/dL (3.4-5.0); ANION GAP 9.6 (8-16); CALCIUM 8.7 mg/dL (8.5-10.1); CARBON DIOXIDE 26.6 mmol/L (21-32); CREATININE 1.2 mg/dL (0.6-1.3); POTASSIUM 4.2 mmol/L (3.5-5.1); TOTAL BILIRUBIN 0.3 mg/dL (0.0-1.0); TOTAL PROTEIN, SERUM 6.9 g/dL (6.4-8.2)
[2022-11-16 08:00] VITALS: BP 111/75; PULSE 56; RESP 18; TEMP 96.5; O2SAT 100
[2022-11-16] MEDS: DEXT 5% / NACL 0.9% 1,000 ML IV SCH ×2 (09:25→20:33)
[2022-11-16] MEDS: PANTOPRAZOLE 40 MG TABEC PO SCH (09:36)
[2022-11-16] MEDS ORDERED: PIPERACILLIN/TAZOBACTAM 3.375 GM in DEXTROSE 5% 50 ML IV SCH (13:00)
[2022-11-16] MEDS ORDERED: GAUZE TP PRN (13:05)
[2022-11-16] MEDS ORDERED: FOAM DRESSING TP PRN (13:05)
[2022-11-16] MEDS: FOAM DRESSING TP SCH (14:31)
[2022-11-16 16:00] VITALS: BP 115/72; PULSE 57; RESP 18; TEMP 97.2; O2SAT 100
[2022-11-16 16:08] VITALS: O2SAT 99
[2022-11-16 20:00] VITALS: BP 97/64; PULSE 60; RESP 18; TEMP 97.1; O2SAT 98
[2022-11-16] MEDS: MEROPENEM 1,000 MG in NACL 0.9% 50 ML IV SCH (20:32)
[2022-11-17] MEDS: GAUZE TP SCH ×2 (01:07→13:00)
[2022-11-17 07:07] LABS: EOSINOPHILS % (AUTO) 1.4 % (0.0-4.0); HEMATOCRIT 34.4 % (36-48); HEMOGLOBIN 11.5 g/dL (12.0-16.0); LYMPHOCYTES # (AUTO) 1.5 K/uL (2.5-16.5); LYMPHOCYTES % (AUTO) 45.6 % (20.5-51.1); MEAN CORPUSCULAR HEMOGLOBIN 33 pg (27-31); MEAN CORPUSCULAR HGB CONC 34 g/dL (33-37); MEAN CORPUSCULAR VOLUME 98.3 fL (80-94); MONOCYTES # (AUTO) 0.2 K/uL (0.8-1.0); MONOCYTES % (AUTO) 6.5 % (1.7-9.3); NEUTROPHILS # (AUTO) 1.5 K/uL (1.8-7.7); NEUTROPHILS % (AUTO) 45.5 % (42.2-75.2); PLATELET COUNT (AUTO) 183 K/uL (140-450); RED CELL DISTRIBUTION WIDTH 15.6 % (11.6-13.7); WHITE BLOOD COUNT (AUTO) 3.3 K/uL (4.8-10.8)
[2022-11-17 07:22] LABS: ANION GAP 10.8 (8-16); CALCIUM 8.5 mg/dL (8.5-10.1); CARBON DIOXIDE 25.6 mmol/L (21-32); CREATININE 1.2 mg/dL (0.6-1.3); POTASSIUM 4.4 mmol/L (3.5-5.1)
[2022-11-17 08:00] VITALS: BP 100/61; PULSE 59; RESP 18; TEMP 97.2; O2SAT 100
[2022-11-17] MEDS: MEROPENEM 1,000 MG in NACL 0.9% 50 ML IV SCH ×2 (09:04→20:52)
[2022-11-17] MEDS: PANTOPRAZOLE 40 MG TABEC PO SCH (09:04)
[2022-11-17] MEDS: DEXT 5% / NACL 0.9% 1,000 ML IV SCH ×2 (09:55→21:55)
[2022-11-17] MEDS ORDERED: BUPIVACAINE-MPF 0.25% 30 ML VIAL INJ ONE (12:37)
[2022-11-17] MEDS ORDERED: LIDOCAINE/EPI MPF 1%1:200000 30 ML VIAL INJ ONE (12:37)
[2022-11-17] MEDS ORDERED: PROPOFOL 1000 MG/100 ML PREMIX 100 ML IV ONE (12:42)
[2022-11-17] MEDS ORDERED: MIDAZOLAM 2 MG/2 ML VIAL ONE (12:43)
[2022-11-17] MEDS ORDERED: fentaNYL citrate 0.05 MG/ML VIAL ONE (12:43)
[2022-11-17] MEDS: FOAM DRESSING TP SCH (13:00)
[2022-11-17 16:00] VITALS: BP 90/53; PULSE 58; RESP 18; TEMP 98; O2SAT 100
[2022-11-17 20:00] VITALS: BP 99/49; PULSE 66; RESP 18; TEMP 97.3; O2SAT 98
[2022-11-18] MEDS: GAUZE TP SCH (01:00)
[2022-11-18 04:00] VITALS: BP 96/54; PULSE 59; RESP 18; TEMP 97.1; O2SAT 100
[2022-11-18 07:08] LABS: BASOPHILS % (AUTO) 0.7 % (0.0-2.0); EOSINOPHILS % (AUTO) 0.9 % (0.0-4.0); HEMATOCRIT 32.8 % (36-48); HEMOGLOBIN 10.9 g/dL (12.0-16.0); LYMPHOCYTES # (AUTO) 1.3 K/uL (2.5-16.5); MEAN CORPUSCULAR HEMOGLOBIN 33 pg (27-31); MEAN CORPUSCULAR HGB CONC 33 g/dL (33-37); MEAN CORPUSCULAR VOLUME 99.2 fL (80-94); MONOCYTES # (AUTO) 0.2 K/uL (0.8-1.0); MONOCYTES % (AUTO) 6.9 % (1.7-9.3); NEUTROPHILS # (AUTO) 1.8 K/uL (1.8-7.7); NEUTROPHILS % (AUTO) 52.5 % (42.2-75.2); PLATELET COUNT (AUTO) 157 K/uL (140-450); RED CELL DISTRIBUTION WIDTH 15.4 % (11.6-13.7); WHITE BLOOD COUNT (AUTO) 3.4 K/uL (4.8-10.8)
[2022-11-18 07:58] LABS: CREATININE 1.1 mg/dL (0.6-1.3); POTASSIUM 4.4 mmol/L (3.5-5.1)
[2022-11-18 08:00] VITALS: BP 98/65; PULSE 62; PULSE 71; RESP 18; TEMP 96.2; O2SAT 99
[2022-11-18 08:04] LABS: ANION GAP 9.8 (8-16); CALCIUM 8.3 mg/dL (8.5-10.1); CARBON DIOXIDE 24.6 mmol/L (21-32)
[2022-11-18] MEDS: PANTOPRAZOLE 40 MG TABEC PO SCH (09:53)
[2022-11-18] MEDS: MEROPENEM 1,000 MG in NACL 0.9% 50 ML IV SCH ×2 (10:43→20:51)
[2022-11-18] MEDS: DEXT 5% / NACL 0.9% 1,000 ML IV SCH (10:55)
[2022-11-18 14:24] VITALS: O2SAT 100
[2022-11-18 16:00] VITALS: BP 162/66; PULSE 60; RESP 18; TEMP 96.8; O2SAT 100
[2022-11-18 20:00] VITALS: PULSE 59; RESP 18; O2SAT 99
[2022-11-19] VITALS: BP 138/60; PULSE 59; RESP 18; TEMP 98; O2SAT 99
[2022-11-19] MEDS: GAUZE TP SCH ×2 (01:00→13:00)
[2022-11-19 07:13] LABS: ANION GAP 7.9 (8-16); CARBON DIOXIDE 26.3 mmol/L (21-32); POTASSIUM 4.2 mmol/L (3.5-5.1)
[2022-11-19 07:24] LABS: BASOPHILS % (AUTO) 0.9 % (0.0-2.0); EOSINOPHILS % (AUTO) 1.2 % (0.0-4.0); HEMATOCRIT 32.4 % (36-48); HEMOGLOBIN 10.7 g/dL (12.0-16.0); LYMPHOCYTES # (AUTO) 1.4 K/uL (2.5-16.5); LYMPHOCYTES % (AUTO) 37.7 % (20.5-51.1); MEAN CORPUSCULAR HEMOGLOBIN 33 pg (27-31); MEAN CORPUSCULAR HGB CONC 33 g/dL (33-37); MONOCYTES # (AUTO) 0.3 K/uL (0.8-1.0); MONOCYTES % (AUTO) 7.8 % (1.7-9.3); NEUTROPHILS # (AUTO) 1.9 K/uL (1.8-7.7); NEUTROPHILS % (AUTO) 52.4 % (42.2-75.2); PLATELET COUNT (AUTO) 157 K/uL (140-450); RED BLOOD CELL COUNT(AUTO) 3.28 MIL/uL (4.20-5.40); RED CELL DISTRIBUTION WIDTH 15.5 % (11.6-13.7); WHITE BLOOD COUNT (AUTO) 3.6 K/uL (4.8-10.8)
[2022-11-19 07:47] LABS: CALCIUM 8.2 mg/dL (8.5-10.1)
[2022-11-19 08:00] VITALS: PULSE 73; RESP 18; O2SAT 99
[2022-11-19] MEDS: MEROPENEM 1,000 MG in NACL 0.9% 50 ML IV SCH ×2 (09:25→21:12)
[2022-11-19] MEDS: PANTOPRAZOLE 40 MG TABEC PO SCH (09:30)
[2022-11-19 11:56] VITALS: BP 101/63; PULSE 73; RESP 18; TEMP 98.6; O2SAT 99
[2022-11-19] MEDS: FOAM DRESSING TP SCH (13:00)
[2022-11-19 16:00] VITALS: BP 106/72; PULSE 74; RESP 18; TEMP 96.7; O2SAT 100
[2022-11-19 20:00] VITALS: PULSE 66; RESP 18; O2SAT 99
[2022-11-19 23:22] VITALS: BP 110/70; PULSE 66; RESP 18; TEMP 98.6; O2SAT 99
[2022-11-20] MEDS: GAUZE TP SCH ×2 (01:00→13:00)
[2022-11-20 08:00] VITALS: BP 101/53; PULSE 57; RESP 17; TEMP 97.9; O2SAT 100
[2022-11-20 08:14] VITALS: PULSE 70; RESP 19; O2SAT 100
[2022-11-20] MEDS: PANTOPRAZOLE 40 MG TABEC PO SCH (09:39)
[2022-11-20] MEDS: MEROPENEM 1,000 MG in NACL 0.9% 50 ML IV SCH (09:39)
[2022-11-20] MEDS: FOAM DRESSING TP SCH (13:00)
[2022-11-20 14:56] VITALS: BP 125/75; PULSE 65; RESP 20; TEMP 96.1
[2022-11-20 16:00] VITALS: BP 90/52; PULSE 61; RESP 18; TEMP 97.7; O2SAT 98
== END 2022-11-20 17:20 | disposition home or self-care (01) | DRG 580 ==
LOC: MED 17:00 → MMU 11-16 03:23 → MTU 11-16 03:43
PROVIDERS: ADMIT Student in an Organized Health Care Education/Training Program; ATTEND Student in an Organized Health Care Education/Training Program
PROC: 0KBK0ZZ Excision of Right Abdomen Muscle, Open Approach (ICD-10-PCS; principal; 2022-11-18)
PROC: 05HY33Z Insertion of Infusion Device into Upper Vein, Percutaneous Approach (ICD-10-PCS; 2022-11-20)
PROC: B54NZZA Ultrasonography of Left Upper Extremity Veins, Guidance (ICD-10-PCS; 2022-11-20)
DX: L02.211 Cutaneous abscess of abdominal wall (principal); E44.1 Mild protein-calorie malnutrition; I10 Essential (primary) hypertension; E78.5 Hyperlipidemia, unspecified; F79 Unspecified intellectual disabilities; Q90.9 Down syndrome, unspecified; Z68.25 Body mass index [BMI] 25.0-25.9, adult
CPT/HCPCS: 36415; 80048; 80053; 81001; 83690; 85025; 85651; 86140; 87040; 87070; 87075; 87081; 96365; 99285; J2001; J2185; J2250; J2543; J2704; J3010; J3490; J7030; J7060; Q0092; Q9967

== ENCOUNTER 2022-11-24 16:06 | Emergency (ER) | payer OTHER, MEDICAID ==
[~2022-11-24] VITALS: Ht 142.2 cm; Wt 48.1 kg
[~2022-11-24 16:06] MED LIST changes: -CEPH-588 PO
[2022-11-24 16:33] VITALS: BP 96/58; PULSE 66; RESP 18; TEMP 97.9; O2SAT 97
[2022-11-24 19:22] VITALS: BP 96/58; PULSE 66; RESP 18; TEMP 97.9; O2SAT 97
== END 2022-11-24 19:22 | disposition home or self-care (01) ==
LOC: MED 16:06
DX: R10.9 Unspecified abdominal pain (principal); Z48.00 Encounter for change or removal of nonsurgical wound dressing; Z79.899 Other long term (current) drug therapy
CPT/HCPCS: 99281

== ENCOUNTER 2022-12-10 16:42 | Emergency (ER) | payer OTHER, MEDICAID ==
[~2022-12-10] VITALS: Ht 138.2 cm; Wt 53.1 kg
[2022-12-10 16:49] VITALS: BP 132/48; PULSE 56; RESP 20; TEMP 97.9; O2SAT 100
[2022-12-10] MEDS ORDERED: LIDOCAINE/EPI MPF 1%1:200000 30 ML VIAL INJ ONE ×2 (21:25→21:33)
[2022-12-10 22:55] VITALS: BP 116/50; PULSE 58; RESP 18; TEMP 97.9; O2SAT 98
== END 2022-12-10 22:55 | disposition home or self-care (01) ==
LOC: MED 16:42
DX: T81.89XA Other complications of procedures, not elsewhere classified, initial encounter (principal); S31.109A Unspecified open wound of abdominal wall, unspecified quadrant without penetration into peritoneal cavity, initial encounter; Z79.899 Other long term (current) drug therapy; Y84.8 Other medical procedures as the cause of abnormal reaction of the patient, or of later complication, without mention of misadventure at the time of the procedure
CPT/HCPCS: 99281; J2001

== ENCOUNTER 2023-10-01 11:32 | Emergency (ER) | payer OTHER, MEDICAID ==
[~2023-10-01] VITALS: Ht 134.6 cm; Wt 70.8 kg
[2023-10-01 11:35] VITALS: BP 125/69; PULSE 79; RESP 20; TEMP 98.8; O2SAT 95
[2023-10-01 13:08] LABS: APPEARANCE,URINE CLEAR (CLEAR); BILIRUBIN,URINE NEGATIVE (NEGATIVE); BLOOD, URINE NEGATIVE (NEGATIVE); COLOR,URINE YELLOW (YELLOW); LEUKOCYTE ESTERASE ,URINE TRACE (NEGATIVE); NITRITE, URINE NEGATIVE (NEGATIVE); PROTEIN,URINE TRACE (NEGATIVE); UGLUCOSE NEGATIVE (NEGATIVE); UROBILINOGEN,URINE 0.2 EU/dL (0.2 - 1)
[2023-10-01] MEDS: ACETAMIN/CODEINE 120/12MG-5ML 5 ML UDC PO STA (13:27)
[2023-10-01] MEDS: IBUPROFEN CHILDRENS 100 MG/5 ML UDC PO STA (13:27)
[2023-10-01] MEDS: HYDROcodone/APAP 5/325 MG 1 TAB TAB PO ONE (13:28)
[2023-10-01] MEDS ORDERED: LID5T TP (15:14)
[2023-10-01] MEDS ORDERED: IBUP100S26 PO (15:14)
[2023-10-01] MEDS ORDERED: HYDR15SO9 PO (15:14)
[2023-10-01] MEDS ORDERED: ACET-8905 PO (17:12)
== END 2023-10-01 15:23 | disposition home or self-care (01) ==
LOC: MED 11:32
DX: S32.059A Unspecified fracture of fifth lumbar vertebra, initial encounter for closed fracture (principal); Z79.1 Long term (current) use of non-steroidal anti-inflammatories (NSAID); Z79.899 Other long term (current) drug therapy; X58.XXXA Exposure to other specified factors, initial encounter; Y93.89 Activity, other specified; Y92.89 Other specified places as the place of occurrence of the external cause; Y99.8 Other external cause status
CPT/HCPCS: 72100; 81003; 81025; 99284

== ENCOUNTER 2023-11-03 12:13 | Emergency (ER) | payer OTHER, MEDICAID ==
[~2023-11-03] VITALS: Ht 147.3 cm; Wt 71.8 kg
[~2023-11-03 12:13] MED LIST changes: +ACET-8905 PO; +IBUP100S26 PO; +LID5T TP
[2023-11-03 12:31] VITALS: BP 136/75; PULSE 68; RESP 16; TEMP 97.7; O2SAT 100
[2023-11-03] MEDS ORDERED: BACTO TP (12:52)
== END 2023-11-03 13:17 | disposition home or self-care (01) ==
LOC: MED 12:13
DX: L01.00 Impetigo, unspecified (principal); Z79.899 Other long term (current) drug therapy
CPT/HCPCS: 99283